=== PATIENT | female | born 1935 | race African-American/Black ===

== ENCOUNTER 2019-09-24 10:04 | Outpatient (RCR) | payer MEDICARE, MEDICAID, SELFPAY | END 2019-09-24 23:59 | disposition home or self-care (01) | LOC: ANHAUDIO 10:04 | DX: Z46.1 Encounter for fitting and adjustment of hearing aid (principal) | CPT/HCPCS: 99199 ==

== ENCOUNTER 2020-05-05 16:49 | Inpatient (IN) | payer MEDICARE, MEDICAID, SELFPAY ==
--- NOTE | ~2020-05-05 | XR_ITS ---
EXAMINATION: XR chest 1V portable INDICATION: Pacemaker insertion TECHNIQUE: Portable AP chest at 1041 hours COMPARISON: 08/19/2019 FINDINGS: A single lead pacemaker has been inserted into the left chest wall. There is no pneumothora x. Stable cardiomegaly is noted. A small left pleural effusion is present which is decreased in size. There is a mild diffuse interstitial pattern. IMPRESSION: 1. Right-sided pacemaker insertion without pneumothorax. 2. Cardiomegaly with mild pulmonary edema. Reviewed, dictated and finalized at location A.
--- NOTE | ~2020-05-05 | CT_ITS ---
EXAMINATION: CT brain wo con, CT cervical spine wo con EXAM DATE: 05/05/2020 18:28 (accession [id number]), 05/05/2020 18:29 (accession [id number]) INDICATION: Head injury. TECHNIQUE: Spiral CT of the head was performed without contrast. Axial, coronal and sagittal images were reviewed. Spiral CT of the cervical spine was performed without contrast. Axial images were rev iewed. Coronal and sagittal reformatted images were also reviewed. The dose-length product (DLP) fo r this examination was 605.33 (accession [id number]), 479.92 (accession [id number]) mGy-cm. The exposure was tailored according to patient size, and iterative reconstruction (ASIR) was used as additional dose reduction technique. Comparison is made to prior examination from 08/21/2019. FINDINGS: HEAD CT: Old small right parietal lobe cortical infarction. Punctate old left thalamic lacunar infarc tion. There is no acute intraparenchymal hemorrhage. No evidence of intraparenchymal brain mass lesi on. No evidence of acute infarction. There is mild periventricular and subcortical hypodensity, nons pecific but probably related to small vessel ischemic disease. There is moderate prominence of the sulci and ventricles related to cerebral atrophy. There is intracranial carotid arteriosclerosis. There is no mass effect or midline shift. There is no obstructive hydrocephalus suspected. There ar e no extra-axial collections. There are no acute calvarial fractures. The orbits are unremarkable. There is large right frontal scalp hematoma. The visualized sinuses and mastoid air cells are well a erated. CERVICAL CT: There is no evidence of acute cervical fracture. The odontoid process is intact. Pre- dens space is normal. Prevertebral soft tissue is normal. There are no soft tissue abnormalities id entified. There is no disc space widening or traumatic vertebral body subluxation suspected. Moderat e to severe disc disease C4-5 and 5-6, less at the other cervical levels. Overall moderate cervical a rthropathy. Goiter. Left pleural effusion. A detailed level by level evaluation of spondylosis can b e added as addendum if requested. IMPRESSION: 1. No acute intracranial findings or cervical fracture. 2. Large right frontal scalp hematoma. 3. 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 4. Left pleural effusion. 5. Cervical spondylosis. 6. Goiter. Reviewed, dictated and finalized at location A. IMPRESSION: 1. No acute intracranial findings or cervical fracture. 2. Large right frontal scalp hematoma. 3. 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 4. Left pleural effusion. 5. Cervical spondylosis. 6. Goiter.
--- NOTE | ~2020-05-05 | CT_ITS ---
EXAMINATION: CTA chest PE protocol EXAM DATE: 05/05/2020 18:29 INDICATION: Syncope. TECHNIQUE: Spiral CTA of the chest (pulmonary arteries) was performed with 100 cc Omnipaque 350 intr avenous contrast injection. Images were acquired during the pulmonary arterial phase. Coronal maxi mum intensity projection 3D-reconstructions were created by the technologist on dedicated workstation . Axial, coronal and sagittal reformatted images were reviewed. The dose-length product (DLP) for t his examination was 964.67 mGy-cm. The exposure was tailored according to patient size (auto mA exp osure control), and iterative reconstruction (ASIR) was used as additional dose reduction technique. Comparison is made to prior examination from 08/21/2019. FINDINGS: There are no pulmonary emboli in the 1st through 3rd order (central and interlobar) pulmon andria arteries. Some loss of attenuation in the segmental pulmonary arteries due to respiratory motion , but no intraluminal filling defects suspected. No thoracic aortic dissection. There is generaliz ed body wall edema. Small bilateral pleural effusions. Cardiomegaly. Left-sided lung volume loss with left basilar atelectasis. There are no pleural or pericardial effusions. Tracheobronchial tree is patent. There is no mediastinal, hilar or axillary lymphadenopathy. There is no pneumothorax. Contrast refluxing through the atrium to the IVC may indicate some component of right heart failure. There is mild coronary arterial calcification, arterial sclerosis. Upper abdomen is unremarkable. There is thoracic spondylosis without osteoblastic or osteolytic lesions identified. IMPRESSION: 1. Cardiomegaly, small pleural effusions, body wall edema. 2. Limited segmental evaluation but no pulmonary emboli suspected. Reviewed, dictated and finalized at location A.
--- NOTE | ~2020-05-05 | XR_ITS ---
EXAMINATION: XR chest 2V DATE: 05/15/2020 10:35 INDICATION: Pacer placement. TECHNIQUE: Frontal and lateral views of the chest were obtained. COMPARISON: Chest single view 05/14/2020, chest CT 05/05/2020 FINDINGS: The patient is rotated to her left on the frontal view. There is a small left pleural effus ion. There is mild atelectasis at left lung base. There are mild perihilar airspace opacities, consis tent with pulmonary edema. No pneumothorax. Cardiomegaly is noted. There is a right chest pacer with single lead in right ventricle. There are surgical clips in the abdomen. IMPRESSION: 1. Mild pulmonary edema with small left pleural effusion. 2. Cardiomegaly. Reviewed, dictated and finalized at location A.
[2020-05-05 16:49] VITALS: BP 129/91; PULSE 136; RESP 36; TEMP 36.6; O2SAT 100
--- NOTE | 2020-05-05 16:57 | ECG_ITS ---
Measurements Intervals [place] Rate: 106 P: WI: 0 QRS: -21 QRSD: 101 T: 137 QT: 314 QTc: 417 Interpretive Statements ATRIAL FIBRILLATION WITH RAPID VENTRICULAR RESPONSE LOW QRS VOLTAGE IN DIFFUSE LEADS INCOMPLETE RIGHT BUNDLE BRANCH BLOCK BORDERLINE ST-T WAVE ABNORMALITY- DIFFUSE LEADS ABNORMAL ECG Electronically Signed On 05-06-2020 7:19:25 CDT by Jude Mcintosh D.O.
--- NOTE | 2020-05-05 17:00 | ED.FALL ---
HPI - Fall General Chief Complaint: Fall Stated Complaint: FALL/HI/ON COUMADIN Time Seen by Provider: 05/05/20 17:00 Source: patient, family and EMS Mode of arrival: EMS Limitations: dementia History of Present Illness HPI Narrative: Patient is an 84-year-old female with a history of dementia, atrial fibrillation, anticoagulated on warfarin who presents for evaluation of syncopal event. Her family member, states that the patient was trying to go to the restroom, family member place the patient on the toilet and the patient began to lose her balance, stating she was going to pass out. Patient then fell to the right and hit her head on the floor. Patient did not have any loss of consciousness. Patient currently is acting at baseline per family member. Patient has history of dementia is quite difficult to obtain history from. Per EMS, patient had very loud bowel movement in transit. Per family member, patient was recently started on new antipsychotic to help with her hallucinations from her dementia. Otherwise no new medication changes. No complaints or behavior changes yesterday. Related Data Home Medications Medication Instructions Recorded Confirmed digoxin 125 mcg PO DAILY 08/19/19 10/08/19 warfarin 2 mg PO DAILY 08/19/19 10/08/19 donepezil 10 mg PO HS 05/05/20 glimepiride 1 mg 05/05/20 metoprolol tartrate 50 mg PO Q12HR 05/05/20 tramadol mg 05/05/20 Allergies Allergy/AdvReac Type Severity Reaction Status Date / Time No Known Allergies Allergy Verified 05/05/20 17:06 Review of Systems Review of Systems: Narrative: Unable to obtain secondary to dementia [facility] Past Medical History Medical History A-fib Anemia of chronic disease Arthritis Cataracts, bilateral CHF (congestive heart failure) Diastolic Diabetes type 2, controlled With peripheral neuropathy. On oral medication. HTN (hypertension) Peripheral neuropathy Seizures TIA (transient ischemic attack) Surgical History Surgical History History of gastric bypass History of knee replacement rt knee Status post cholecystectomy Family History Family History Mother Diabetes mellitus Father Acute myocardial infarction Sibling Kidney disease Son Murder Son Pancreatic cancer Daughter Acute myocardial infarction Son Cirrhosis of liver Other Unknown family medical history Social History Social History (Updated 08/19/19 @ 15:52 by Isamar Rivera NP) Social History: The patient did live in [place] at 1 time. Then she lived in [facility]. And now she lives with her daughter. Her still lives in a fpc in [place] since he had a stroke. Her daughter is Nohelia Stanley who she does needs to be her durable power district attorney. The patient does need herself to be a full code. The patient is a Jehovah Witness and does not take blood transfusions. She denies any alcohol tobacco or drug use. Smoking status: Never smoker Alcohol intake: never Substance use: never Gender identity (if verbalized by the patient): Female Spiritual care concerns: Yes (Jehovah Witness) Agree to blood products: No Exam Narrative: Exam Narrative: Nursing note and vitals reviewed. CONSTITUTIONAL: The patient appears well-developed and well-nourished. No distress. HEAD: Normocephalic, area of ecchymosis to the forehead EYES: PERRL, EOMI palsy of the left eye, deviates to the left, at baseline per family, normal conjunctiva, anicteric EARS: External ears clear bilaterally, no hemotympanum MOUTH: OP clear, no erythema, exudates NECK: midline trachea, supple, FROM. No cervical spinal tenderness. CARDIOVASCULAR: Normal rate, regular rhythm, normal heart sounds and intact distal pulses. No murmurs, rubs, gallops. PULMONARY: Effort normal and breath sounds normal. No respi
[2020-05-05 17:14] LABS: Basophils Percent Auto 0.5 % (0.2-1.2); Eosinophils Absolute Auto 0.1 K/mm3 (0-0.3); Eosinophils Percent Auto 1.6 % (0-4.4); Hematocrit 32.5 % (37.0-47.0); Hemoglobin 10.2 g/dL (12.0-15.0); Immature Granulocyte Absolute 0.03 K/mm3 (0.00-0.031); Immature Granulocyte Percent A 0.5 % (0-0.5); Lymphocytes Absolute Auto 0.88 K/mm3 (0.9-3.2); Lymphocytes Percent Auto 14.1 % (18.3-44.2); Mean Corpuscular HGB Conc 31.4 g/dl (32-36); Mean Corpuscular Hemoglobin 28.5 pg (26-34); Mean Corpuscular Volume 90.8 fl (80-100); Mean Platelet Volume 11.8 fl (7.4-10.4); Monocytes Absolute Auto 0.8 K/mm3 (0.1-0.6); Monocytes Percent Auto 12.4 % (2.6-8.5); Neutrophils Absolute Auto 4.4 K/mm3 (1.3-6.7); Neutrophils Percent Auto 70.9 % (45.5-73.1); Platelet Count Result 123 k/mm3 (150-375); Red Blood Count 3.58 M/mm3 (4.2-5.4); Red Cell Distribution Width 17.1 % (11.5-14.5); White Blood Count 6.2 K/mm3 (4.5-10.0)
[2020-05-05 17:29] LABS: Alanine Aminotransferase 12 U/L (4-35); Albumin Level 4.2 g/dL (3.5-5.1); Alkaline Phosphatase 101 U/L (38-126); Anion Gap 9 mmol/L (8-16); Aspartate Amino Transferase 23 U/L (14-36); Bilirubin,Total 1.8 mg/dL (0.2-1.3); Blood Urea Nitrogen 32 mg/dL (7-17); Calcium 9.3 mg/dL (8.4-10.2); Carbon Dioxide 17 mmol/L (22-30); Chloride 112 mmol/L (98-107); Estimated CRCL calculation 30 ml/min; Estimated Glomerular Filt Rate 37; Glucose 157 mg/dL (65-105); Potassium 4.7 mmol/L (3.4-5.0); Sodium 138 mmol/L (137-145)
[2020-05-05 17:40] LABS: Troponin I < 0.012 ng/mL (0.000-0.034)
[2020-05-05 17:42] LABS: INR 2.8
[2020-05-05 17:43] VITALS: BP 139/76; PULSE 79; RESP 21; O2SAT 99
[2020-05-05 17:43] LABS: Partial Thromboplastin Time 39.9 SECONDS (22.3-36.8)
[2020-05-05 17:53] LABS: Add Urine Microscopic? YES; Appearance Urine Clear (Clear); Bacteria Urine Trace /hpf; Bilirubin Urine Negative (Negative); Blood Urine Negative (Negative); Color Urine Yellow (Yellow); Glucose Urine UA Negative (Negative); Ketones Urine Negative (Negative); Leukocyte Esterase Ur Negative LEU/UL (Negative); Mucus Urine Rare /lpf; Nitrate Urine Negative (Negative); Protein Urine 2+ mg/dL (Negative); Specific Grav Ur 1.017 (1.001-1.035); Squamous Epithelial Cell Urine Few /hpf (Few); WBC Urine 0-3 /hpf
[2020-05-05 18:01] LABS: D Dimer 3.12 ug/mL (<0.48)
[2020-05-05 18:42] VITALS: BP 136/84; PULSE 76; RESP 16; O2SAT 100
--- NOTE | 2020-05-05 20:22 | PC.NURSE ---
unable to draw 3hr, asked nurse
[2020-05-05 20:55] VITALS: BP 133/66; PULSE 62; RESP 20; TEMP 36.5; O2SAT 100; BMI 33.4
--- NOTE | 2020-05-05 21:18 | ADMGEN ---
This patient, Maria Alejandra Nunez, was admitted to IMU Room 203-01. Patient/family oriented to hospital policies and general routines including ID bracelet, bed and alarms, visiting hours, pain management, procedures, bathroom and other care routines, personal items, smoking policy, room service/diet, and visiting hours. Valuables list has been completed. Information on how to activate the Rapid Response Team has been discussed. Patient/Family are encouraged to report perceived risks to care and to ask questions if they do not understand what they are told or what they should do. approx 2100 05/05/20 report from sundeep
[2020-05-05 21:30] VITALS: PULSE 54
[2020-05-05] MEDS: ACETAMINOPHEN 325 MG TABLET 650 MG PO (21:48)
[2020-05-05 21:49] LABS: Troponin I 0.014 ng/mL (0.000-0.034)
[2020-05-05 22:00] VITALS: PULSE 59
--- NOTE | 2020-05-05 23:18 | PM.IMHP ---
H&P: HPI History of Present Illness Date/Time: 05/05/20 23:18 Chief complaint: fall, head injury Narrative: source of information is past medical records. The patient is only alert and oriented x2 in can provide no additional information regarding her reason for admission. Maria Alejandra Nunez is a 84 year old female with a past medical history of dementia,diastolic heart failure, right ventricular heart failure with severe pulmonary hypertension, chronic atrial fibrillation and chronic kidney disease stage 3 who presented to the ER via EMS from home after having a fall. The patient was assisted to Toilet by her family. As soon as she sat down she began to lose her balance and felt as if she was going to pass out. The patient then fell to the right and hit her head on the floor. The patient did not lose consciousness. the patient is got some chronic confusion due to her dementia. She is only alert orient times 1-2 at the time of my evaluation. Per EMS the patient had a large bowel movement in transit to the ER. The patient was evidently started on a new antipsychotic recently due to hallucinations. In the ER the patient was noted to be in atrial fibrillation with a heart rate as high as 132. Once she arrived to the IMU the patient was having episodes of bradycardia with a heart rate as low as 32. she is on chronic anticoagulation with Coumadin. When patient arrived the ER she had an obvious hematoma to or forehead. She had reported a mild headache prior to my evaluation and had received Tylenol. She denies a headache currently. She does report that her legs chronically hurt. Her legs were cool to touch and we were unable to palpate pulses but the patient did have pulses that were Dopplered. She reports that her leg pain is in her thighs. She said that the doctors have told her in the past that it is due to arthritis. Review of Systems Review of Systems: Narrative: 12 systems Were reviewedwith pertinent positives and negatives per HPI. Except as documented in the HPI, all other systems were reviewed and are negative. however the review of systems is extremely limited due to the patient's dementia. [facility] Past Medical History Medical History (Updated 05/06/20 @ 01:56 by Cecy Saravia DO) Anemia of chronic disease Arthritis Atrial fibrillation Cataracts, bilateral CHF (congestive heart failure) Diastolic Chronic right-sided heart failure echocardiogram July 2019 demonstrated EF of 55-60%, moderately increased left ventricular wall thickness, diastolic function is abnormal, right ventricular chamber severely enlarged, right ventricular systolic function severely reduced, severe biatrial enlargement, mild mitral valve regurgitation, moderate tricuspid valve regurgitation, severe pulmonary hypertension with RVSP of 91, mild pulmonic regurgitation, small atheroma anterior and posterior aortic root, dilated inferior vena cava was greater than 50% collapse consistent with significantly elevated right atrial pressures Cirrhosis of liver with ascites CKD (chronic kidney disease) stage 3, GFR 30-59 ml/min CVA (cerebral vascular accident) 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 On oral medication. Essential hypertension Multinodular goiter normal TSH 07/2019 Peripheral neuropathy Seizures Severe pulmonary arterial systolic hypertension Surgical History Surgical History (Updated 05/05/20 @ 23:44 by Cecy Saravia DO) History of gastric bypass History of total right knee replacement Status post cholecystectomy Family History Family History (Updated 05/05/20 @ 23:31 by Cecy Saravia DO) Mother Diabetes mellitus Father Acute myocardial infarction Sibling Kidney disease sister Son Murder 1 son Son Pancreatic cancer Daughter , at age 39 or 40 Acute myocardial infarction Son Deceas
[2020-05-05 23:44] LABS: Troponin I < 0.012 ng/mL (0.000-0.034)
[2020-05-06] VITALS (14 sets, daily range): BP systolic 105–128; BP diastolic 51–79; PULSE 42–112; RESP 14–20; TEMP 35.7–36.7; O2SAT 96–100
[2020-05-06 05:17] LABS: Hematocrit 30.3 % (37.0-47.0); Hemoglobin 9.3 g/dL (12.0-15.0); Mean Corpuscular HGB Conc 30.7 g/dl (32-36); Mean Corpuscular Hemoglobin 29.3 pg (26-34); Mean Corpuscular Volume 95.6 fl (80-100); Platelet Count Result 65 k/mm3 (150-375); Red Blood Count 3.17 M/mm3 (4.2-5.4); Red Cell Distribution Width 17.2 % (11.5-14.5); White Blood Count 4.2 K/mm3 (4.5-10.0)
--- NOTE | 2020-05-06 08:07 | PM.CNCAR ---
Assessment and Plan Assessment and plan (1) Atrial fibrillation: Code(s): I48.91 - Unspecified atrial fibrillation Status: Acute Assessment and Plan: Chronic atrila fib. She has some tachybrady issue, and the ariane component may have caused her dizziness/fall. She is having atrial fib with SVR predominanty on medications. Metoprolol on hold. She is on Digoxin. Monitor HR to see how she responds. (2) Pulmonary hypertension: Code(s): I27.20 - Pulmonary hypertension, unspecified Status: Acute Assessment and Plan: Had referred her to [facility] [place] [facility] hypertension clinic. (3) CHF (congestive heart failure): Qualifiers: Heart failure type: diastolic Heart failure chronicity: acute on chronic Qualified Code(s): I50.33 - Acute on chronic diastolic (congestive) heart failure Code(s): I50.9 - Heart failure, unspecified Status: Chronic Assessment and Plan: She has chronic diastolic heart failure. Monitor fluid status. History of Present Illness History of Present Illness Consult date/time: 05/06/20 08:07 Reason for consult: Atrial fib with SVR. Patient is a 84 yr old woman who presented to ED for fall after dizziness. She has a history of diastolic heart failure, right ventricular heart failure with severe pulmonary hypertension, hypertension, chronic atrial fibrillation, anemia, CKD stage III. Reports she was assisted to toilet yesterday and she got dizzy and fell and hit her head. She denies passing out. On telemetry her HR was 39-106 bpm. She is chronically weak and can only transfer in her home to get around. She cannot walk due to weakness in her legs and in general. Admits to OLMOS. She is alert and oriented to her name, place and president of [employer] [facility] [facility] [facility] [facility], but not year. Denies chest pain, orthopnea, palpitations, edema. Cardiovascular Procedures Echo/MUGA:: 08/20/19 Echo: EF 55-60%, mod LVH, diastolic dysfunction (E/e' 17), severe RV enlargement and hypokinesis, severe LAE and RAS, mod MAC, mild MR, mild thickening of TV, severe pulm hypertension with RVSP 91 mmHg, mild PI. Echo (EF 60%, grade 3-4 diastolic dysfunction (E/E' 23), mod RVE/hypokinesis, severe biatrial enlargement, mild MR, severe pulm hypertension (97 mmHg), mod TR/PI.) - 10/13/2017 Electrophysiology:: 08/19/19 EKG: Atrial fibrillation with RVR, PVC, IRBBB, low voltage, borderline ST-T wave in lateral leads EKG (Atrial fibrillation at 49 bpm, ST-T wave abnormality- consider anterolateral ischemia.) - 12/29/2017 EKG (Atrial fibrillation with RVR, RSR', ST-T wave abnormality- consider lateral ischemia.) - 12/16/2017 Stress Tests:: 08/21/19 CT chest: Mod left and small right pleural effusions. Reason For Visit: fall, head injury Review of Systems Constitutional: Constitutional: Reports as per HPI, Denies chills, Reports fatigue and Reports weakness Cardiovascular: Cardiovascular: Reports as per HPI, Denies chest pain, Reports pedal edema and Reports lightheadedness Respiratory: Respiratory: Reports as per HPI and Reports dyspnea Gastrointestinal: Gastrointestinal: Reports as per HPI and Denies abdominal pain Genitourinary: Genitourinary: Reports as per HPI and Denies dysuria Musculoskeletal: Musculoskeletal: Reports as per HPI Neurologic: Reports as per HPI and Denies Abnormal speech present [facility] Past Medical History Medical History (Updated 05/06/20 @ 08:12 by Jude Mcintosh DO) Anemia of chronic disease Arthritis Atrial fibrillation Cataracts, bilateral CHF (congestive heart failure) Diastolic Chronic right-sided heart failure echocardiogram July 2019 demonstrated EF of 55-60%, moderately increased left ventricular wall thickness, diastolic function is abnormal, right ventricular chamber severely enlarged, right ventricular systolic function severely reduced, severe biatrial enlargement, mild mitral valve regurgitation, moderate tricuspid valve regurgitation, severe pulmonary hyperten
[2020-05-06] MEDS: GLIMEPIRIDE 1 MG TABLET PO (10:08)
[2020-05-06] MEDS: SPIRONOLACTONE 25 MG TABLET PO (10:08)
[2020-05-06] MEDS: DIGOXIN TAB 125 MCG TABLET PO (10:08)
--- NOTE | 2020-05-06 14:11 | PM.IMPN ---
Progress Note: A&P Assessment and Plan (1) Syncope: Code(s): R55 - Syncope and collapse Status: Acute Assessment and Plan: likely secondary to symptomatic bradycardia. Continue to monitor heart rate on telemetry in IMU. Continues to be bradycardic (2) Symptomatic bradycardia: Code(s): R00.1 - Bradycardia, unspecified Status: Acute Assessment and Plan: The patient has atrial fibrillation and was actually tachycardic in the ER. 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 DR Mcintosh consulted . (3) Traumatic hematoma of forehead: Code(s): S00.83XA - Contusion of other part of head, initial encounter Status: Acute Assessment and Plan: patient has been placed on fall precautions. PT/ OT. Subjective Date/time seen: 05/06/20 14:11 Interval history: 84 year old female with a past medical history of dementia,diastolic heart failure, right ventricular heart failure with severe pulmonary hypertension, chronic atrial fibrillation and chronic kidney disease stage 3 who presented to the ER via EMS from home after having a fall. Pt is in AF with RVR watched on monitor. Pt has history of falls. Continue cardiology recommendations and PT/ OT today hopeful discharge tomorrow. Pt has no specific complaints Review of Systems Review of Systems: All systems reviewed & are unremarkable except as noted in HPI and below Exam Narrative: Exam Narrative: Temp Pulse Resp BP Pulse Ox 36.1 C L 43 L 18 105/51 L 100 05/06/20 12:00 05/06/20 12:00 05/06/20 12:00 05/06/20 12:00 05/06/20 12:00 General: Elderly lady HEENT: large hematoma on the forehead, Respiratory: clear to auscultation bilaterally, Cardiovascular: bradycardic, irregular rhythm Skin: dried flaking skin generalized, feet are cold to touch Musculoskeletal: pitting edema to lower extremities, generalized weakness Neurological: alert and oriented times 1-2, speech is clear, no facial asymmetry, moves all extremities equally, but is weak and prone to falls Psychiatric: pleasantly confused Objective Data Vital Signs Vital Signs: Vital Signs - 24 hr 05/05/20 16:49 05/05/20 17:43 05/05/20 18:42 Temperature 36.6 C Pulse Rate 136 H 79 76 Respiratory Rate 36 H 21 H 16 Blood Pressure 129/91 H 139/76 136/84 Pulse Oximetry 100 99 100 05/05/20 20:55 05/05/20 21:30 05/05/20 22:00 Temperature 36.5 C Pulse Rate 62 54 L 59 L Respiratory Rate 20 Blood Pressure 133/66 Pulse Oximetry 100 05/06/20 00:00 05/06/20 02:00 05/06/20 04:00 Temperature 35.7 C L 36.5 C Pulse Rate 59 L 52 L 51 L Respiratory Rate 14 20 Blood Pressure 118/53 L 113/51 L Pulse Oximetry 100 97 05/06/20 06:00 05/06/20 08:00 05/06/20 10:00 Temperature 36.4 C L Pulse Rate 51 L 56 L 52 L Respiratory Rate 18 Blood Pressure 119/62 Pulse Oximetry 100 05/06/20 10:08 05/06/20 12:00 Temperature 36.1 C L Pulse Rate 62 43 L Respiratory Rate 18 Blood Pressure 105/51 L Pulse Oximetry 100 Intake/Output Intake/Output: Intake & Output 05/03/20 05/04/20 05/05/20 05/06/20 23:59 23:59 23:59 23:59 Intake Total 100 Output Total 100 Balance -100 100 Meds/Results Medications: Active Medications Generic Name Dose Route Start Last Admin Trade Name [place] PRN Reason Stop Dose Admin Acetaminophen 650 mg 05/05/20 18:58 05/05/20 21:48 Tylenol Tablet PO 650 mg Q4H PRN Administration Mild Pain (1-3) or Fever Digoxin 125 mcg 05/06/20 09:00 05/06/20 10:08 Lanoxin Tab PO 125 mcg DAILY MOON Administration Donepezil HCl 10 mg 05/06/20 21:00 Aricept PO HS MOON Glimepiride 1 mg 05/06/20 08:00 05/06/20 10:08 Amaryl PO 1 mg DAILY@0800 MOON Administration Ondansetron HCl 4 mg 05/05/20 18:58 Zofr
[2020-05-06 14:42] LABS: Digoxin 1.5 ng/mL (0.8-2.0)
[2020-05-06] MEDS: WARFARIN (*PBKC) 2 MG TABLET PO (16:40)
[2020-05-06] MEDS: DONEPEZIL HCL 10 MG TABLET PO (20:22)
[2020-05-06] MEDS: traMADol HCL 50 MG TABLET PO (20:32)
[2020-05-07] VITALS (17 sets, daily range): BP systolic 112–127; BP diastolic 55–75; PULSE 105–119; RESP 18–22; TEMP 36.1–36.6; O2SAT 96–100
[2020-05-07 06:32] LABS: Hematocrit 30.2 % (37.0-47.0); Hemoglobin 9.4 g/dL (12.0-15.0); Immature Platelet Fraction Pct 16.6 % (0.9-11.2); Mean Corpuscular HGB Conc 31.1 g/dl (32-36); Mean Corpuscular Volume 93.2 fl (80-100); Platelet Count Result 45 k/mm3 (150-375); Red Blood Count 3.24 M/mm3 (4.2-5.4); Red Cell Distribution Width 17.2 % (11.5-14.5); White Blood Count 4.2 K/mm3 (4.5-10.0)
[2020-05-07 06:38] LABS: Anion Gap 9 mmol/L (8-16); Blood Urea Nitrogen 29 mg/dL (7-17); Carbon Dioxide 17 mmol/L (22-30); Chloride 112 mmol/L (98-107); Estimated CRCL calculation 36 ml/min; Estimated Glomerular Filt Rate 47; Glucose 69 mg/dL (65-105); Sodium 138 mmol/L (137-145)
--- NOTE | 2020-05-07 07:59 | PM.PNCARD ---
Progress Note: A&P Assessment and Plan (1) Atrial fibrillation: Code(s): I48.91 - Unspecified atrial fibrillation Status: Acute Assessment and Plan: On Warfarin. Chronic atrila fib. She has some tachybrady issue, and the ariane component may have caused her dizziness/fall. She is having atrial fib with SVR predominanty on medications. Stop Digoxin. Resume low dose Metoprolol Tartate 6.25 mg BID as her HR is now predominantly 90-110 bpm. Monitor HR to see how she responds. (2) Pulmonary hypertension: Code(s): I27.20 - Pulmonary hypertension, unspecified Status: Acute Assessment and Plan: Had referred her to [facility] hypertension clinic. (3) CHF (congestive heart failure): Qualifiers: Heart failure type: diastolic Heart failure chronicity: acute on chronic Qualified Code(s): I50.33 - Acute on chronic diastolic (congestive) heart failure Code(s): I50.9 - Heart failure, unspecified Status: Chronic Assessment and Plan: She has chronic diastolic heart failure. Monitor fluid status. Subjective Date/time seen: 05/07/20 07:59 Reports no chest pain or sob. No dizziness. Exam Const: General: comfortable and no acute distress Neck: Neck: no JVD Carotids: no bruits Resp: Auscultation: clear to auscultation bilaterally, no crackles, no rales, no rhonchi and no wheezes Cardio: Rate: tachycardic Rhythm: abnormal rhythm Heart sounds: no murmurs GI: Inspection: non-distended Neuro: Speech: normal speech Extrem: Right lower extremity: edema Left lower extremity: edema Other: Mild-mod pedal edema bilaterally Objective Data Vital Signs Vital Signs: Vital Signs - 24 hr 05/06/20 08:00 05/06/20 10:00 05/06/20 10:08 Temperature 97.5 F L Pulse Rate 56 L 52 L 62 Respiratory Rate 18 Blood Pressure 119/62 Pulse Oximetry 100 05/06/20 12:00 05/06/20 16:00 05/06/20 18:00 Temperature 97 F L 97.6 F Pulse Rate 42 L 110 H 102 H Respiratory Rate 18 18 Blood Pressure 105/51 L 128/79 Pulse Oximetry 100 100 05/06/20 19:17 05/06/20 20:00 05/06/20 22:00 Temperature 98.1 F Pulse Rate 110 H 48 L 112 H Respiratory Rate 20 20 Blood Pressure 125/57 L Pulse Oximetry 100 100 05/06/20 23:11 05/07/20 00:00 05/07/20 02:00 Temperature 97.7 F Pulse Rate 111 H 110 H 110 H Respiratory Rate 18 18 Blood Pressure 114/61 Pulse Oximetry 96 96 05/07/20 03:59 05/07/20 04:00 05/07/20 05:58 Temperature 97.6 F Pulse Rate 112 H 111 H 110 H Respiratory Rate 18 18 Blood Pressure 120/74 Pulse Oximetry 96 96 Intake/Output Intake/Output: Intake & Output 05/04/20 05/05/20 05/06/20 05/07/20 23:59 23:59 23:59 23:59 Intake Total 720 100 Output Total 100 Balance -100 720 100 Meds/Results Medications: Active Medications Generic Name Dose Route Start Last Admin Trade Name Freq PRN Reason Stop Dose Admin Acetaminophen 650 mg 05/05/20 18:58 05/05/20 21:48 Tylenol Tablet PO 650 mg Q4H PRN Administration Mild Pain (1-3) or Fever Donepezil HCl 10 mg 05/06/20 21:00 05/06/20 20:22 Aricept PO 10 mg HS MOON Administration Glimepiride 1 mg 05/06/20 08:00 05/06/20 10:08 Amaryl PO 1 mg DAILY@0800 MOON Administration Metoprolol Tartrate 6.25 mg 05/07/20 09:00 Lopressor PO Q12HR MOON Ondansetron HCl 4 mg 05/05/20 18:58 Zofran Inj IV PUSH Q4H PRN Nausea Spironolactone 25 mg 05/06/20 09:00 05/06/20 10:08 Aldactone PO 25 mg QAM MOON Administration Tramadol HCl 50 mg 05/06/20 01:46 05/06/20 20:32 Ultram PO 50 mg TID PRN Administration Pain 4-6 Warfarin Sodium 2 mg 05/06/20 17:00 05/06/20 16:40 Coumadin PO 2 mg DAILY@1700 MOON Administration Radiology Results: ITS Impressions Cervical Spine CT 05/05/20 18:35 IMPRESSION: 1. No acute intracranial findings or cervical fracture. 2. Large right fro
[2020-05-07 08:16] LABS: INR 2.4
[2020-05-07] MEDS: SPIRONOLACTONE 25 MG TABLET PO (08:32)
[2020-05-07] MEDS: GLIMEPIRIDE 1 MG TABLET PO (08:32)
[2020-05-07] MEDS: METOPROLOL TARTRATE 6.25 MG TABLET PO (08:33)
[2020-05-07] MEDS: WARFARIN (*PBKC) 2 MG TABLET PO (17:09)
--- NOTE | 2020-05-07 17:14 | PM.IMPN ---
Progress Note: A&P Assessment and Plan (1) Syncope: Code(s): R55 - Syncope and collapse Status: Acute Assessment and Plan: likely secondary to symptomatic bradycardia. Continue to monitor heart rate on telemetry in IMU. Today is tachycardiac (2) Symptomatic bradycardia: Code(s): R00.1 - Bradycardia, unspecified Status: Acute Assessment and Plan: The patient has atrial fibrillation and was actually tachycardic in the ER. 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 DR Mcintosh consulted . (3) Traumatic hematoma of forehead: Code(s): S00.83XA - Contusion of other part of head, initial encounter Status: Acute Assessment and Plan: patient has been placed on fall precautions. PT/ OT. Subjective Date/time seen: 05/07/20 17:14 Interval history: 84 year old female with a past medical history of dementia,diastolic heart failure, right ventricular heart failure with severe pulmonary hypertension, chronic atrial fibrillation and chronic kidney disease stage 3 who presented to the ER via EMS from home after having a fall. Pt is in AF with RVR watched on monitor. Pt has history of falls. Continue cardiology recommendations and PT/ OT today hopeful discharge soon. Pt is tacycardic today, pt was bradycardic Pt has no specific complaints Review of Systems Review of Systems: ROS unobtainable: Yes unobtainable due to medical condition Exam Narrative: Exam Narrative: Temp Pulse Resp BP Pulse Ox 36.1 C L 43 L 18 105/51 L 100 05/06/20 12:00 05/06/20 12:00 05/06/20 12:00 05/06/20 12:00 05/06/20 12:00 General: Elderly lady HEENT: large hematoma on the forehead, Respiratory: clear to auscultation bilaterally, Cardiovascular: bradycardic, irregular rhythm Skin: dried flaking skin generalized, feet are cold to touch Musculoskeletal: pitting edema to lower extremities, generalized weakness Neurological: alert and oriented times 1-2, speech is clear, no facial asymmetry, moves all extremities equally, but is weak and prone to falls Psychiatric: pleasantly confused Objective Data Vital Signs Vital Signs: Vital Signs - 24 hr 05/06/20 18:00 05/06/20 19:17 05/06/20 20:00 Temperature 36.7 C Pulse Rate 102 H 110 H 48 L Respiratory Rate 20 20 Blood Pressure 125/57 L Pulse Oximetry 100 100 05/06/20 22:00 05/06/20 23:11 05/07/20 00:00 Temperature 36.5 C Pulse Rate 112 H 111 H 110 H Respiratory Rate 18 18 Blood Pressure 114/61 Pulse Oximetry 96 96 05/07/20 02:00 05/07/20 03:59 05/07/20 04:00 Temperature 36.4 C Pulse Rate 110 H 112 H 111 H Respiratory Rate 18 18 Blood Pressure 120/74 Pulse Oximetry 96 96 05/07/20 05:58 05/07/20 08:00 05/07/20 08:33 Temperature 36.5 C Pulse Rate 110 H 117 H 117 H Respiratory Rate 18 Blood Pressure 119/55 L Pulse Oximetry 100 05/07/20 08:37 05/07/20 09:56 05/07/20 12:00 Temperature 36.1 C L Pulse Rate 117 H 111 H 114 H Respiratory Rate 18 18 Blood Pressure 112/75 Pulse Oximetry 100 100 05/07/20 14:00 05/07/20 16:00 Temperature 36.6 C Pulse Rate 115 H 116 H Respiratory Rate 22 H Blood Pressure 119/72 Pulse Oximetry 100 Intake/Output Intake/Output: Intake & Output 05/04/20 05/05/20 05/06/20 05/07/20 23:59 23:59 23:59 23:59 Intake Total 720 340 Output Total 100 Balance -100 720 340 Meds/Results Medications: Active Medications Generic Name Dose Route Start Last Admin Trade Name Freq PRN Reason Stop Dose Admin Acetaminophen 650 mg 05/05/20 18:58 05/05/20 21:48 Tylenol Tablet PO 650 mg Q4H PRN Administration Mild Pain (1-3) or Fever Donepezil HCl 10 mg 05/06/20 21:00 05/06/20 20:22 Aricept PO 10 mg HS MOON Administration Glimepiride 1 mg 05/06/20 08:00 0
[2020-05-07] MEDS: traMADol HCL 50 MG TABLET PO (20:23)
[2020-05-07] MEDS: DONEPEZIL HCL 10 MG TABLET PO (20:23)
[2020-05-07] MEDS: METOPROLOL TARTRATE 12.5 MG TABLET PO (20:23)
[2020-05-08] VITALS (19 sets, daily range): BP systolic 105–141; BP diastolic 53–83; PULSE 46–115; RESP 2–22; TEMP 35.9–36.8; O2SAT 97–100
[2020-05-08 05:13] LABS: Hematocrit 28.1 % (37.0-47.0); Mean Corpuscular Hemoglobin 29.1 pg (26-34); Mean Corpuscular Volume 90.9 fl (80-100); Mean Platelet Volume 12.2 fl (7.4-10.4); Platelet Count Result 124 k/mm3 (150-375); Red Blood Count 3.09 M/mm3 (4.2-5.4); White Blood Count 4.8 K/mm3 (4.5-10.0)
[2020-05-08 05:23] LABS: Anion Gap 7 mmol/L (8-16); Blood Urea Nitrogen 26 mg/dL (7-17); Carbon Dioxide 19 mmol/L (22-30); Chloride 112 mmol/L (98-107); Estimated CRCL calculation 36 ml/min; Estimated Glomerular Filt Rate 47; Glucose 60 mg/dL (65-105); Sodium 138 mmol/L (137-145)
[2020-05-08 05:30] LABS: INR 2.4; Prothrombin Time 25.3 Seconds (11.1-14.7)
[2020-05-08 05:58] LABS: Glucose Point of Care 57 (65-105)
[2020-05-08 06:30] LABS: Glucose Point of Care 63 (65-105)
[2020-05-08 07:42] LABS: Glucose Point of Care 84 (65-105)
--- NOTE | 2020-05-08 09:41 | PM.PNCARD ---
Progress Note: A&P Assessment and Plan (1) Atrial fibrillation: Code(s): I48.91 - Unspecified atrial fibrillation Status: Acute Assessment and Plan: On Warfarin. Chronic atrila fib. She has some tachybrady issue, and the ariane component may have caused her dizziness/fall. She is having atrial fib with SVR predominanty on medications. Stop Digoxin. Increase Metoprolol Tartate 12.5 mg BID as her HR is now predominantly 90-115 bpm. Monitor HR to see how she responds. (2) Pulmonary hypertension: Code(s): I27.20 - Pulmonary hypertension, unspecified Status: Acute Assessment and Plan: Had referred her to [facility] hypertension clinic. (3) CHF (congestive heart failure): Qualifiers: Heart failure type: diastolic Heart failure chronicity: acute on chronic Qualified Code(s): I50.33 - Acute on chronic diastolic (congestive) heart failure Code(s): I50.9 - Heart failure, unspecified Status: Chronic Assessment and Plan: She has chronic diastolic heart failure. Monitor fluid status. Subjective Date/time seen: 05/08/20 09:41 No chest pain or sob or dizziness. Exam Const: General: comfortable and no acute distress Neck: Neck: no JVD Carotids: no bruits Resp: Auscultation: clear to auscultation bilaterally, no crackles, no rales, no rhonchi and no wheezes Cardio: Rate: tachycardic Rhythm: abnormal rhythm GI: Inspection: non-distended Neuro: Speech: normal speech Extrem: Right lower extremity: no edema Left lower extremity: no edema Objective Data Vital Signs Vital Signs: Vital Signs - 24 hr 05/07/20 09:56 05/07/20 12:00 05/07/20 14:00 Temperature 97 F L Pulse Rate 111 H 114 H 115 H Respiratory Rate 18 Blood Pressure 112/75 Pulse Oximetry 100 05/07/20 16:00 05/07/20 17:36 05/07/20 20:00 Temperature 97.9 F 97.9 F Pulse Rate 116 H 118 H 117 H Respiratory Rate 22 H 20 Blood Pressure 119/72 126/68 Pulse Oximetry 100 96 05/07/20 20:23 05/07/20 22:00 05/07/20 23:37 Temperature 97.8 F Pulse Rate 118 H 117 H 119 H Respiratory Rate 20 Blood Pressure 127/70 Pulse Oximetry 97 05/08/20 00:00 05/08/20 02:00 05/08/20 04:00 Temperature 98.0 F Pulse Rate 59 L 52 L 75 Respiratory Rate 20 20 Blood Pressure 131/62 Pulse Oximetry 97 97 05/08/20 05:59 05/08/20 08:20 Temperature 97.2 F L Pulse Rate 58 L 113 H Respiratory Rate 22 H Blood Pressure 115/63 Pulse Oximetry 100 Intake/Output Intake/Output: Intake & Output 05/05/20 05/06/20 05/07/20 05/08/20 23:59 23:59 23:59 23:59 Intake Total 720 390 Output Total 100 350 Balance -100 720 390 -350 Meds/Results Medications: Active Medications Generic Name Dose Route Start Last Admin Trade Name Freq PRN Reason Stop Dose Admin Acetaminophen 650 mg 05/05/20 18:58 05/05/20 21:48 Tylenol Tablet PO 650 mg Q4H PRN Administration Mild Pain (1-3) or Fever Donepezil HCl 10 mg 05/06/20 21:00 05/07/20 20:23 Aricept PO 10 mg HS MOON Administration Glimepiride 1 mg 05/06/20 08:00 05/07/20 08:32 Amaryl PO 1 mg DAILY@0800 [facility] Administration Metoprolol Tartrate 12.5 mg 05/07/20 21:00 05/07/20 20:23 Lopressor PO 12.5 mg Q12HR MOON Administration Ondansetron HCl 4 mg 05/05/20 18:58 Zofran Inj IV PUSH Q4H PRN Nausea Spironolactone 25 mg 05/06/20 09:00 05/07/20 08:32 Aldactone PO 25 mg QAM MOON Administration Tramadol HCl 50 mg 05/06/20 01:46 05/07/20 20:23 Ultram PO 50 mg TID PRN Administration Pain 4-6 Warfarin Sodium 2 mg 05/06/20 17:00 05/07/20 17:09 Coumadin PO 2 mg DAILY@1700 MOON Administration Radiology Results: ITS Impressions Cervical Spine CT 05/05/20 18:35 IMPRESSION: 1. No acute intracranial findings or cervical fracture. 2. Large right frontal scalp hematoma. 3. 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
[2020-05-08] MEDS: METOPROLOL TARTRATE 12.5 MG TABLET PO (09:59)
[2020-05-08] MEDS: SPIRONOLACTONE 25 MG TABLET PO (10:00)
--- NOTE | 2020-05-08 11:40 | P.CDI_ITS ---
CDI Query Clarification Request Dr Mcintosh You have documented CHF, diastolic acute on chronic. Also, She has chronic simons tolic heart failure. Monitor fluid status. Please clarify acuity of diastolic CHF: * Acute on chronic or * Chronic <Mireya Tinoco RN - Last Filed: 05/08/20 11:44> Provider Comments It says chronic diastolic heart failure. Not acute. <Jude Mcintosh DO - Last Filed: 05/08/20 11:47>
--- NOTE | 2020-05-08 11:40 | WPDCDIQUERY2 ---
CDI Query Clarification Request Dr Mcintosh You have documented CHF, diastolic acute on chronic. Also, She has chronic diastolic heart failure. Monitor fluid status. Please clarify acuity of diastolic CHF: Acute on chronic or Chronic <Mireya Tinoco RN - Last Filed: 05/08/20 11:44> Provider Comments It says chronic diastolic heart failure. Not acute. <Jude Mcintosh DO - Last Filed: 05/08/20 11:47>
--- NOTE | 2020-05-08 12:16 | PCPTNOTE ---
Patient refused treatment this session due to being nauseated. PT will continue to follow per plan of care.
[2020-05-08 12:41] LABS: Glucose Point of Care 63 (65-105)
--- NOTE | 2020-05-08 16:41 | PM.IMPN ---
Progress Note: A&P Assessment and Plan (1) Syncope: Code(s): R55 - Syncope and collapse Status: Acute Assessment and Plan: likely secondary to symptomatic bradycardia. Continue to monitor heart rate on telemetry in IMU. Today is tachycardiac (2) Symptomatic bradycardia: Code(s): R00.1 - Bradycardia, unspecified Status: Acute Assessment and Plan: Today is tachycardiac The patient has atrial fibrillation and was actually tachycardic in the ER. 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 DR Mcintosh consulted . (3) Traumatic hematoma of forehead: Code(s): S00.83XA - Contusion of other part of head, initial encounter Status: Acute Assessment and Plan: patient has been placed on fall precautions. PT/ OT. (4) Nausea: Code(s): R11.0 - Nausea Status: Acute Assessment and Plan: Order kub for wilner Subjective Date/time seen: 05/08/20 16:41 Interval history: 84 year old female with a past medical history of dementia,diastolic heart failure, right ventricular heart failure with severe pulmonary hypertension, chronic atrial fibrillation and chronic kidney disease stage 3 who presented to the ER via EMS from home after having a fall. Pt is in AF with RVR watched on monitor. Pt has history of falls. Continue cardiology recommendations and PT/ OT today hopeful discharge soon. Pt is tachycardic today, Pt is nauseated today. Pt has no other specific complaints Review of Systems Review of Systems: Narrative: nausea Exam Narrative: Exam Narrative: Temp Pulse Resp BP Pulse Ox 36.1 C L 43 L 18 105/51 L 100 05/06/20 12:00 05/06/20 12:00 05/06/20 12:00 05/06/20 12:00 05/06/20 12:00 General: Elderly lady HEENT: large hematoma on the forehead, Respiratory: clear to auscultation bilaterally, Cardiovascular: tachycardic Skin: dried flaking skin generalized, feet are cold to touch Musculoskeletal: pitting edema to lower extremities, generalized weakness Neurological: alert and oriented times 1-2, speech is clear, no facial asymmetry, moves all extremities equally, but is weak and prone to falls Psychiatric: pleasantly confused Objective Data Vital Signs Vital Signs: Vital Signs - 24 hr 05/07/20 17:36 05/07/20 20:00 05/07/20 20:23 Temperature 36.6 C Pulse Rate 118 H 117 H 118 H Respiratory Rate 20 Blood Pressure 126/68 Pulse Oximetry 96 05/07/20 22:00 05/07/20 23:37 05/08/20 00:00 Temperature 36.6 C Pulse Rate 117 H 119 H 59 L Respiratory Rate 20 20 Blood Pressure 127/70 Pulse Oximetry 97 97 05/08/20 02:00 05/08/20 04:00 05/08/20 05:59 Temperature 36.7 C Pulse Rate 52 L 75 58 L Respiratory Rate 20 Blood Pressure 131/62 Pulse Oximetry 97 05/08/20 08:20 05/08/20 08:45 05/08/20 09:59 Temperature 36.2 C L Pulse Rate 113 H 113 H 115 H Respiratory Rate 22 H Blood Pressure 115/63 Pulse Oximetry 100 05/08/20 10:00 05/08/20 12:00 05/08/20 13:02 Temperature 36.8 C Pulse Rate 110 H 112 H 114 H Respiratory Rate 22 H Blood Pressure 140/83 Pulse Oximetry 97 05/08/20 14:00 Temperature Pulse Rate 114 H Respiratory Rate Blood Pressure Pulse Oximetry Intake/Output Intake/Output: Intake & Output 05/05/20 05/06/20 05/07/20 05/08/20 23:59 23:59 23:59 23:59 Intake Total 720 390 120 Output Total 100 350 Balance -100 720 390 -230 Meds/Results Medications: Active Medications Generic Name Dose Route Start Last Admin Trade Name Freq PRN Reason Stop Dose Admin Acetaminophen 650 mg 05/05/20 18:58 05/05/20 21:48 Tylenol Tablet PO 650 mg Q4H PRN Administration Mild Pain (1-3) or Fever Donepezil HCl 10 mg 05/06/20 21:00 05/07/20 20:23 Aricept PO 10 mg HS MOON Administration Gli
[2020-05-08 17:14] LABS: Glucose Point of Care 115 (65-105)
[2020-05-08] MEDS: WARFARIN (*PBKC) 2 MG TABLET PO (17:26)
--- NOTE | 2020-05-08 19:51 | PC.NURSE ---
1943- at @ 1940 pt HR 110's then pt had @ 3/32 sec pause - HR 40's-50's; pt asymptomatic- Dr. Mcintosh called and notified - new orders received
[2020-05-08] MEDS: DONEPEZIL HCL 10 MG TABLET PO (20:57)
[2020-05-09] VITALS (16 sets, daily range): BP systolic 105–142; BP diastolic 46–61; PULSE 42–68; RESP 16–20; TEMP 35.8–36.3; O2SAT 96–100
[2020-05-09 04:41] LABS: Hematocrit 29.4 % (37.0-47.0); Hemoglobin 9.1 g/dL (12.0-15.0); Mean Corpuscular Hemoglobin 28.7 pg (26-34); Mean Corpuscular Volume 92.7 fl (80-100); Mean Platelet Volume 11.8 fl (7.4-10.4); Platelet Count Result 113 k/mm3 (150-375); Red Blood Count 3.17 M/mm3 (4.2-5.4); Red Cell Distribution Width 16.8 % (11.5-14.5); White Blood Count 4.3 K/mm3 (4.5-10.0)
[2020-05-09 04:48] LABS: INR 2.3; Prothrombin Time 24.8 Seconds (11.1-14.7)
[2020-05-09 04:54] LABS: Anion Gap 7 mmol/L (8-16); Blood Urea Nitrogen 25 mg/dL (7-17); Carbon Dioxide 20 mmol/L (22-30); Chloride 109 mmol/L (98-107); Estimated CRCL calculation 34 ml/min; Estimated Glomerular Filt Rate 44; Glucose 94 mg/dL (65-105); Potassium 5.1 mmol/L (3.4-5.0); Sodium 136 mmol/L (137-145)
--- NOTE | 2020-05-09 07:46 | PM.PNCARD ---
Progress Note: A&P Assessment and Plan (1) Atrial fibrillation: Code(s): I48.91 - Unspecified atrial fibrillation Status: Acute Assessment and Plan: On Warfarin. She has PAF/atrial tachycardia that changes to Junctional rhythm in 30-50 bpm range with a 3 second pause upon change in rhythm. She has tachybrady issue, and the ariane component may have caused her dizziness/fall. Stopped Digoxin. On Metoprolol 6.25 mg BID. She needs a pacemaker as antiarrhythmics would likely keep her in Juntional rhythm. She does walk around at home with a walker. Notified HCG of need for pacemaker. She is on Warfarin so we'll have to hold it and perhaps by Tuesday as today is Tuesday she can have her device placement. (2) Pulmonary hypertension: Code(s): I27.20 - Pulmonary hypertension, unspecified Status: Acute Assessment and Plan: Had referred her to [facility] pul hypertension clinic. (3) CHF (congestive heart failure): Qualifiers: Heart failure chronicity: acute on chronic Heart failure type: diastolic Qualified Code(s): I50.33 - Acute on chronic diastolic (congestive) heart failure Code(s): I50.9 - Heart failure, unspecified Status: Chronic Assessment and Plan: She has chronic diastolic heart failure. Monitor fluid status. Subjective Date/time seen: 05/09/20 07:46 Denies chest pain or sob. Telemetry shows at 7:30 pm last evening she went from atrial tachycardia at 120's bpm, 3.3 second pause, then junctional rhythm at 38 bpm. Exam Const: General: comfortable and no acute distress Neck: Neck: no JVD Carotids: no bruits Cardio: Rate: bradycardic Rhythm: abnormal rhythm GI: Inspection: non-distended Neuro: Speech: normal speech Extrem: Right lower extremity: no edema Left lower extremity: no edema Objective Data Vital Signs Vital Signs: Vital Signs - 24 hr 05/08/20 08:20 05/08/20 08:45 05/08/20 09:59 Temperature 97.2 F L Pulse Rate 113 H 113 H 115 H Respiratory Rate 22 H Blood Pressure 115/63 Pulse Oximetry 100 05/08/20 10:00 05/08/20 12:00 05/08/20 13:02 Temperature 98.2 F Pulse Rate 110 H 112 H 114 H Respiratory Rate 22 H Blood Pressure 140/83 Pulse Oximetry 97 05/08/20 14:00 05/08/20 16:30 05/08/20 17:18 Temperature 96.7 F L Pulse Rate 114 H 112 H 112 H Respiratory Rate 21 H Blood Pressure 141/82 H Pulse Oximetry 100 05/08/20 18:00 05/08/20 19:37 05/08/20 20:00 Temperature 98.3 F Pulse Rate 115 H 49 L 46 L Respiratory Rate 16 18 Blood Pressure 105/55 L Pulse Oximetry 100 99 05/08/20 20:58 05/08/20 22:00 05/08/20 23:31 Temperature 97.7 F Pulse Rate 48 L 48 L 50 L Respiratory Rate 2 L Blood Pressure 107/53 L Pulse Oximetry 100 05/09/20 00:00 05/09/20 02:00 05/09/20 04:00 Temperature 97 F L Pulse Rate 42 L 42 L 55 L Respiratory Rate 18 18 Blood Pressure 116/46 L Pulse Oximetry 98 100 05/09/20 06:00 Temperature Pulse Rate 56 L Respiratory Rate Blood Pressure Pulse Oximetry Intake/Output Intake/Output: Intake & Output 05/06/20 05/07/20 05/08/20 05/09/20 23:59 23:59 23:59 23:59 Intake Total 720 390 360 250 Output Total 550 Balance 720 390 -190 250 Meds/Results Medications: Active Medications Generic Name Dose Route Start Last Admin Trade Name Freq PRN Reason Stop Dose Admin Acetaminophen 650 mg 05/05/20 18:58 05/05/20 21:48 Tylenol Tablet PO 650 mg Q4H PRN Administration Mild Pain (1-3) or Fever Donepezil HCl 10 mg 05/06/20 21:00 05/08/20 20:57 Aricept PO 10 mg HS MOON Administration Furosemide 20 mg 05/09/20 09:00 Lasix Tablet PO DAILY MOON Glimepiride 1 mg 05/06/20 08:00 05/08/20 10:05 Amaryl PO Not Given DAILY@0800 MOON Metoprolol Tartrate 6.25 mg 05/08/20 21:00 05/08/20 20:58 Lopressor PO Not Given Q12HR MOON Ondansetron HCl 4 mg 05/05/20 18:58
[2020-05-09 09:05] LABS: Glucose Point of Care 79 (65-105)
[2020-05-09] MEDS: METOPROLOL TARTRATE 6.25 MG TABLET PO ×2 (09:45→21:11)
[2020-05-09] MEDS: FUROSEMIDE 20 MG TABLET PO (09:45)
[2020-05-09] MEDS: LACTULOSE 20 GM/30 ML UDC PO ×2 (09:45→16:30)
--- NOTE | 2020-05-09 12:38 | PM.IMPN ---
Progress Note: A&P Assessment and Plan (1) Syncope: Code(s): R55 - Syncope and collapse Status: Acute Assessment and Plan: likely secondary to symptomatic bradycardia. Continue to monitor heart rate on telemetry in IMU. Today is tachycardiac (2) Symptomatic bradycardia: Code(s): R00.1 - Bradycardia, unspecified Status: Acute Assessment and Plan: Today is tachycardiac The patient has atrial fibrillation and was actually tachycardic in the ER. 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 Pt may benefit from pacemaker DR Mcintosh consulted . (3) Traumatic hematoma of forehead: Code(s): S00.83XA - Contusion of other part of head, initial encounter Status: Acute Assessment and Plan: patient has been placed on fall precautions. PT/ OT. (4) Nausea: Code(s): R11.0 - Nausea Status: Resolved Assessment and Plan: KUB not ordered Subjective Date/time seen: 05/09/20 12:38 Interval history: 84 year old female with a past medical history of dementia,diastolic heart failure, right ventricular heart failure with severe pulmonary hypertension, chronic atrial fibrillation and chronic kidney disease stage 3 who presented to the ER via EMS from home after having a fall. Pt is in AF with RVR watched on monitor. Pt has history of falls. Continue cardiology recommendations and PT/ OT today. Pt may need pacemaker. Review of Systems Review of Systems: All systems reviewed & are unremarkable except as noted in HPI and below ROS unobtainable: Yes other (frequent falls ) Cardiovascular: Cardiovascular: Denies chest pain, Denies dyspnea and Reports slow heart rate Comments: With high heart rates Exam Narrative: Exam Narrative: Temp Pulse Resp BP Pulse Ox 36.1 C L 43 L 18 105/51 L 100 05/06/20 12:00 05/06/20 12:00 05/06/20 12:00 05/06/20 12:05/06/20 12:00 General: Elderly lady HEENT: large hematoma on the forehead, Respiratory: clear to auscultation bilaterally, Cardiovascular: tachycardic Skin: dried flaking skin generalized, feet are cold to touch Musculoskeletal: pitting edema to lower extremities, generalized weakness Neurological: alert and oriented times 1-2, speech is clear, no facial asymmetry, moves all extremities equally, but is weak and prone to falls Psychiatric: pleasantly confused Objective Data Vital Signs Vital Signs: Vital Signs - 24 hr 05/08/20 13:02 05/08/20 14:00 05/08/20 16:30 Temperature 36.8 C Pulse Rate 114 H 114 H 112 H Respiratory Rate 22 H Blood Pressure 140/83 Pulse Oximetry 97 05/08/20 17:18 05/08/20 18:00 05/08/20 19:37 Temperature 35.9 C L 36.8 C Pulse Rate 112 H 115 H 49 L Respiratory Rate 21 H 16 Blood Pressure 141/82 H 105/55 L Pulse Oximetry 100 100 05/08/20 20:00 05/08/20 20:58 05/08/20 22:00 Temperature Pulse Rate 46 L 48 L 48 L Respiratory Rate 18 Blood Pressure Pulse Oximetry 99 05/08/20 23:31 05/09/20 00:00 05/09/20 02:00 Temperature 36.5 C Pulse Rate 50 L 42 L 42 L Respiratory Rate 2 L 18 Blood Pressure 107/53 L Pulse Oximetry 100 98 05/09/20 04:00 05/09/20 06:00 05/09/20 08:00 Temperature 36.1 C L Pulse Rate 55 L 56 L 59 L Respiratory Rate 18 Blood Pressure 116/46 L Pulse Oximetry 100 05/09/20 08:19 05/09/20 09:45 05/09/20 10:00 Temperature 36.3 C L Pulse Rate 53 L 60 47 L Respiratory Rate 20 Blood Pressure 105/50 L Pulse Oximetry 100 Intake/Output Intake/Output: Intake & Output 05/06/20 05/07/20 05/08/20 05/09/20 23:59 23:59 23:59 23:59 Intake Total 720 390 360 250 Output Total 550 175 Balance 720 390 -190 75 Meds/Results Medications: Active Medications Generic Name Dose Route Start Last Admin Trade Name Freq PRN Reason Stop
[2020-05-09 12:50] LABS: Glucose Point of Care 158 (65-105)
[2020-05-09 17:57] LABS: Glucose Point of Care 191 (65-105)
[2020-05-09] MEDS: DONEPEZIL HCL 10 MG TABLET PO (21:11)
[2020-05-09] MEDS: ACETAMINOPHEN 325 MG TABLET 650 MG PO (21:11)
[2020-05-09 22:36] LABS: Glucose Point of Care 171 (65-105)
[2020-05-10] VITALS (15 sets, daily range): BP systolic 111–125; BP diastolic 41–61; PULSE 54–68; RESP 16–18; TEMP 35.8–37; O2SAT 100
[2020-05-10 04:51] LABS: INR 2.2; Prothrombin Time 23.9 Seconds (11.1-14.7)
[2020-05-10 05:36] LABS: Anion Gap 5 mmol/L (8-16); Blood Urea Nitrogen 26 mg/dL (7-17); Calcium 9.1 mg/dL (8.4-10.2); Carbon Dioxide 20 mmol/L (22-30); Chloride 111 mmol/L (98-107); Estimated CRCL calculation 36 ml/min; Estimated Glomerular Filt Rate 47; Glucose 109 mg/dL (65-105); Potassium 4.9 mmol/L (3.4-5.0); Sodium 136 mmol/L (137-145)
[2020-05-10] MEDS: METOPROLOL TARTRATE 6.25 MG TABLET PO ×2 (08:27→20:07)
[2020-05-10] MEDS: FUROSEMIDE 20 MG TABLET PO ×2 (08:27→16:38)
[2020-05-10] MEDS: LACTULOSE 20 GM/30 ML UDC PO ×2 (08:27→16:38)
[2020-05-10 08:45] LABS: Glucose Point of Care 95 (65-105)
--- NOTE | 2020-05-10 10:05 | PM.PNCARD ---
Progress Note: A&P Additional Plan will anticipate proceeding with VVI pacemaker Tuesday if INR is 1.5 or lower. Yuri Reese MD [facility] Subjective Date/time seen: date of service:05/10/20 10:05 Interval history: This is an 84-year-old woman with atrial fib with rate control and anticoagulation. The charts indicate she is in AFib chronically. Because of the picture of tachy-ariane including some pauses of greater than 3 seconds we have been asked to implant a pacemaker device in her. The patient is followed by Dr. Mcintosh. Her rate controlling medications including digoxin and metoprolol have been placed on hold. Despite this she was still having some problematic bradycardic pauses. The patient of is chronically on Coumadin and this has been placed on hold in anticipation of pacemaker implantation. INR this morning is still 2.2. Will tentatively plan on pacemaker implantation on Tuesday. INR must be less than 1.5 to safely proceed Exam Const: General: comfortable and no acute distress Neck: Neck: no JVD Thyroid: thyroid normal Resp: Effort & Inspection: normal respiratory effort Auscultation: clear to auscultation bilaterally Cardio: Rhythm: abnormal rhythm irregularly irregular GI: Auscultation: normal bowel sounds Skin: General skin exam: normal color Neuro: Cognition (Neuro): normal cognition Objective Data Vital Signs Vital Signs: Vital Signs - 24 hr 05/09/20 12:00 05/09/20 13:16 05/09/20 14:00 Temperature 35.8 C L Pulse Rate 47 L 58 L 68 Respiratory Rate 16 Blood Pressure 106/53 L Pulse Oximetry 100 05/09/20 16:00 05/09/20 18:00 05/09/20 20:00 Temperature 35.8 C L 36.1 C L Pulse Rate 53 L 63 66 Respiratory Rate 16 18 Blood Pressure 142/61 H 122/57 L Pulse Oximetry 100 100 05/09/20 21:11 05/09/20 22:00 05/10/20 00:00 Temperature 36.6 C Pulse Rate 59 L 50 L 59 L Respiratory Rate 18 Blood Pressure 118/61 Pulse Oximetry 100 05/10/20 02:00 05/10/20 04:00 05/10/20 06:00 Temperature 36.7 C Pulse Rate 61 59 L 65 Respiratory Rate Blood Pressure 117/50 L Pulse Oximetry 100 05/10/20 08:00 05/10/20 08:27 05/10/20 10:04 Temperature 35.8 C L Pulse Rate 67 65 57 L Respiratory Rate 18 Blood Pressure 114/48 L Pulse Oximetry 100 Intake/Output Intake/Output: Intake & Output 05/07/20 05/08/20 05/09/20 05/10/20 23:59 23:59 23:59 23:59 Intake Total 390 360 580 150 Output Total 550 175 200 Balance 390 -190 405 -50 Meds/Results Medications: Active Medications Generic Name Dose Route Start Last Admin Trade Name Freq PRN Reason Stop Dose Admin Acetaminophen 650 mg 05/05/20 18:58 05/09/20 21:11 Tylenol Tablet PO 650 mg Q4H PRN Administration Mild Pain (1-3) or Fever Donepezil HCl 10 mg 05/06/20 21:00 05/09/20 21:11 Aricept PO 10 mg HS MOON Administration Furosemide 20 mg 05/09/20 09:00 05/10/20 08:27 Lasix Tablet PO 20 mg DAILY MOON Administration Glimepiride 1 mg 05/06/20 08:00 05/09/20 09:18 Amaryl PO Not Given DAILY@0800 MOON Lactulose 20 gm 05/09/20 09:00 05/10/20 08:27 Lactulose PO 20 gm BID MOON Administration Metoprolol Tartrate 6.25 mg 05/08/20 21:00 05/10/20 08:27 Lopressor PO 6.25 mg Q12HR MOON Administration Ondansetron HCl 4 mg 05/05/20 18:58 Zofran Inj IV PUSH Q4H PRN Nausea Polyethylene Glycol 17 gm 05/09/20 09:14 Miralax PO QAM PRN Constipation Tramadol HCl 50 mg 05/06/20 01:46 05/07/20 20:23 Ultram PO 50 mg TID PRN Administration Pain 4-6 Warfarin Sodium 2 mg 05/06/20 17:00 05/08/20 17:26 Coumadin PO 2 mg DAILY@1700 MOON Administration Radiology Results: ITS Impressions Cervical Spine CT 05/05/20 18:35 IMPRESSION: 1. No acute intracranial findings or cervical fracture. 2. Large right frontal scalp hematoma. 3. 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 4.
--- NOTE | 2020-05-10 12:48 | PM.PNCARD ---
Progress Note: A&P Assessment and Plan (1) Atrial fibrillation: Code(s): I48.91 - Unspecified atrial fibrillation Status: Acute Assessment and Plan: On Warfarin. She has PAF/atrial tachycardia that changes to Junctional rhythm in 30-50 bpm range with a 3 second pause upon change in rhythm. She has tachybrady issue, and the ariane component may have caused her dizziness/fall. Stopped Digoxin. On Metoprolol 6.25 mg BID. She needs a pacemaker as antiarrhythmics would likely keep her in Juntional rhythm. She does walk around at home with a walker. Notified HCG of need for pacemaker. She is on Warfarin so we'll have to hold it and perhaps by Tuesday as today is Tuesday she can have her device placement. (2) Pulmonary hypertension: Code(s): I27.20 - Pulmonary hypertension, unspecified Status: Acute Assessment and Plan: Had referred her to [facility] pul hypertension clinic. (3) CHF (congestive heart failure): Qualifiers: Heart failure type: diastolic Heart failure chronicity: acute on chronic Qualified Code(s): I50.33 - Acute on chronic diastolic (congestive) heart failure Code(s): I50.9 - Heart failure, unspecified Status: Chronic Assessment and Plan: She has chronic diastolic heart failure. Due to hyperkalemia, Spironolactone changed to Furosemide. Will increase Furosemide 20 mg BID given development of edema of legs. Subjective Date/time seen: 05/10/20 12:48 Denies chest pain or sob. Exam Const: General: comfortable and no acute distress Neck: Neck: no JVD Carotids: no bruits Cardio: Rate: bradycardic Rhythm: abnormal rhythm GI: Inspection: non-distended Neuro: Speech: normal speech Extrem: Right lower extremity: edema Left lower extremity: edema Other: Mild edema of both legs Objective Data Vital Signs Vital Signs: Vital Signs - 24 hr 05/09/20 13:16 05/09/20 14:00 05/09/20 16:00 Temperature 96.5 F L 96.5 F L Pulse Rate 58 L 68 53 L Respiratory Rate 16 16 Blood Pressure 106/53 L 142/61 H Pulse Oximetry 100 100 05/09/20 18:00 05/09/20 20:00 05/09/20 21:11 Temperature 97 F L Pulse Rate 63 66 59 L Respiratory Rate 18 Blood Pressure 122/57 L Pulse Oximetry 100 05/09/20 22:00 05/10/20 00:00 05/10/20 02:00 Temperature 98 F Pulse Rate 50 L 59 L 61 Respiratory Rate 18 Blood Pressure 118/61 Pulse Oximetry 100 05/10/20 04:00 05/10/20 06:00 05/10/20 08:00 Temperature 98.1 F 96.5 F L Pulse Rate 59 L 65 67 Respiratory Rate 18 Blood Pressure 117/50 L 114/48 L Pulse Oximetry 100 100 05/10/20 08:27 05/10/20 10:04 Temperature Pulse Rate 65 57 L Respiratory Rate Blood Pressure Pulse Oximetry Intake/Output Intake/Output: Intake & Output 05/07/20 05/08/20 05/09/20 05/10/20 23:59 23:59 23:59 23:59 Intake Total 390 360 580 150 Output Total 550 175 200 Balance 390 -190 405 -50 Meds/Results Medications: Active Medications Generic Name Dose Route Start Last Admin Trade Name Freq PRN Reason Stop Dose Admin Acetaminophen 650 mg 05/05/20 18:58 05/09/20 21:11 Tylenol Tablet PO 650 mg Q4H PRN Administration Mild Pain (1-3) or Fever Donepezil HCl 10 mg 05/06/20 21:00 05/09/20 21:11 Aricept PO 10 mg HS MOON Administration Furosemide 20 mg 05/09/20 09:00 05/10/20 08:27 Lasix Tablet PO 20 mg DAILY MOON Administration Glimepiride 1 mg 05/06/20 08:00 05/09/20 09:18 Amaryl PO Not Given DAILY@0800 MOON Lactulose 20 gm 05/09/20 09:00 05/10/20 08:27 Lactulose PO 20 gm BID MOON Administration Metoprolol Tartrate 6.25 mg 05/08/20 21:00 05/10/20 08:27 Lopressor PO 6.25 mg Q12HR MOON Administration Ondansetron HCl 4 mg 05/05/20 18:58 Zofran Inj IV PUSH Q4H PRN Nausea Polyethylene Glycol 17 gm 05/09/20 09:14 Miralax PO QAM PRN Constipation Tramadol HCl 50 mg 05/06/20
[2020-05-10 15:02] LABS: Glucose Point of Care 186 (65-105)
--- NOTE | 2020-05-10 15:55 | PM.IMPN ---
Progress Note: A&P Assessment and Plan (1) Syncope: Code(s): R55 - Syncope and collapse Status: Acute Assessment and Plan: likely secondary to symptomatic bradycardia. Continue to monitor heart rate on telemetry in IMU. Today is bradycardic (2) Symptomatic bradycardia: Code(s): R00.1 - Bradycardia, unspecified Status: Acute Assessment and Plan: The patient has atrial fibrillation and was actually tachycardic in the ER. 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 Pt may benefit from pacemaker DR Mcintosh consulted . (3) Traumatic hematoma of forehead: Code(s): S00.83XA - Contusion of other part of head, initial encounter Status: Acute Assessment and Plan: patient has been placed on fall precautions. PT/ OT. (4) Nausea: Code(s): R11.0 - Nausea Status: Resolved Assessment and Plan: KUB not ordered, eating small amounts (5) Anemia of chronic disease: Code(s): D63.8 - Anemia in other chronic diseases classified elsewhere Status: Chronic Assessment and Plan: hb is 9 start iron supplementation creat is 1.3 history of CKD stage 3 Subjective Date/time seen: 05/10/20 15:55 Interval history: 84 year old female with a past medical history of dementia,diastolic heart failure, right ventricular heart failure with severe pulmonary hypertension, chronic atrial fibrillation and chronic kidney disease stage 3 who presented to the ER via EMS from home after having a fall. Pt is in AF with RVR watched on monitor. Pt has history of falls. Continue cardiology recommendations and PT/ OT today. For pacemaker on tuesday. Coumadin on hold. Review of Systems Review of Systems: ROS unobtainable: Yes unobtainable due to medical condition Exam Narrative: Exam Narrative: Temp Pulse Resp BP Pulse Ox 36.1 C L 43 L 18 105/51 L 100 05/06/20 12:00 05/06/20 12:00 05/06/20 12:00 05/06/20 12:00 05/06/20 12:00 General: Elderly lady HEENT: large hematoma on the forehead, Respiratory: clear to auscultation bilaterally, Cardiovascular: bradycardic Skin: dried flaking skin generalized, feet are cold to touch Musculoskeletal: pitting edema to lower extremities, generalized weakness Neurological: alert and oriented times 1-2, speech is clear, no facial asymmetry, moves all extremities equally, but is weak and prone to falls Psychiatric: pleasantly confused Objective Data Vital Signs Vital Signs: Vital Signs - 24 hr 05/09/20 16:00 05/09/20 18:00 05/09/20 20:00 Temperature 35.8 C L 36.1 C L Pulse Rate 53 L 63 66 Respiratory Rate 16 18 Blood Pressure 142/61 H 122/57 L Pulse Oximetry 100 100 05/09/20 21:11 05/09/20 22:00 05/10/20 00:00 Temperature 36.6 C Pulse Rate 59 L 50 L 59 L Respiratory Rate 18 Blood Pressure 118/61 Pulse Oximetry 100 05/10/20 02:00 05/10/20 04:00 05/10/20 06:00 Temperature 36.7 C Pulse Rate 61 59 L 65 Respiratory Rate Blood Pressure 117/50 L Pulse Oximetry 100 05/10/20 08:00 05/10/20 08:27 05/10/20 10:04 Temperature 35.8 C L Pulse Rate 67 65 57 L Respiratory Rate 18 Blood Pressure 114/48 L Pulse Oximetry 100 05/10/20 12:00 05/10/20 14:11 Temperature 36.2 C L Pulse Rate 66 54 L Respiratory Rate 16 Blood Pressure 125/41 L Pulse Oximetry 100 Intake/Output Intake/Output: Intake & Output 05/07/20 05/08/20 05/09/20 05/10/20 23:59 23:59 23:59 23:59 Intake Total 390 360 580 390 Output Total 550 175 200 Balance 390 -190 405 190 Meds/Results Medications: Active Medications Generic Name Dose Route Start Last Admin Trade Name Freq PRN Reason Stop Dose Admin Acetaminophen 650 mg 05/05/20 18:58 05/09/20 21:11 Tylenol Tablet PO 650 mg Q4H PRN Administration Mild Ayana
[2020-05-10 17:13] LABS: Glucose Point of Care 155 (65-105)
[2020-05-10] MEDS: ONDANSETRON INJ 4 MG/2 ML VIAL IV PUSH (18:43)
[2020-05-10] MEDS: DONEPEZIL HCL 10 MG TABLET PO (20:07)
[2020-05-10] MEDS: ACETAMINOPHEN 325 MG TABLET 650 MG PO (20:08)
[2020-05-10 20:09] LABS: Glucose Point of Care 199 (65-105)
[2020-05-11] VITALS (18 sets, daily range): BP systolic 113–141; BP diastolic 52–73; PULSE 50–66; RESP 16–18; TEMP 35.7–36.9; O2SAT 97–100
[2020-05-11 04:07] LABS: Hematocrit 28.4 % (37.0-47.0); Immature Platelet Fraction Pct 4.2 % (0.9-11.2); Mean Corpuscular HGB Conc 31.7 g/dl (32-36); Mean Corpuscular Hemoglobin 29.2 pg (26-34); Mean Corpuscular Volume 92.2 fl (80-100); Platelet Count Result 113 k/mm3 (150-375); Red Blood Count 3.08 M/mm3 (4.2-5.4); Red Cell Distribution Width 16.9 % (11.5-14.5); White Blood Count 3.7 K/mm3 (4.5-10.0)
[2020-05-11 04:17] LABS: INR 2.1; Prothrombin Time 22.7 Seconds (11.1-14.7)
[2020-05-11 04:21] LABS: Anion Gap 7 mmol/L (8-16); Blood Urea Nitrogen 24 mg/dL (7-17); Calcium 9.3 mg/dL (8.4-10.2); Carbon Dioxide 21 mmol/L (22-30); Chloride 110 mmol/L (98-107); Estimated CRCL calculation 32 ml/min; Estimated Glomerular Filt Rate 40; Glucose 129 mg/dL (65-105); Sodium 138 mmol/L (137-145)
[2020-05-11 08:08] LABS: Glucose Point of Care 105 (65-105)
[2020-05-11] MEDS: METOPROLOL TARTRATE 6.25 MG TABLET PO ×2 (08:33→20:16)
[2020-05-11] MEDS: FUROSEMIDE 20 MG TABLET PO ×2 (08:34→17:24)
[2020-05-11] MEDS: FERROUS SULFATE 324 MG TABLET PO (08:34)
[2020-05-11] MEDS: LACTULOSE 20 GM/30 ML UDC PO ×2 (08:34→17:24)
--- NOTE | 2020-05-11 09:21 | PM.PNCARD ---
Progress Note: A&P Assessment and Plan (1) Atrial fibrillation: Code(s): I48.91 - Unspecified atrial fibrillation Status: Acute Assessment and Plan: On Warfarin. She has PAF/atrial tachycardia that changes to Junctional rhythm in 30-50 bpm range with a 3 second pause upon change in rhythm. She has tachybrady issue, and the ariane component may have caused her dizziness/fall. Stopped Digoxin. On Metoprolol 6.25 mg BID. She needs a pacemaker as antiarrhythmics would likely keep her in Juntional rhythm. She does walk around at home with a walker. Notified HCG of need for pacemaker. She is on Warfarin so we'll have to hold it and get her INR <1.5 before she can have her device placement. (2) Pulmonary hypertension: Code(s): I27.20 - Pulmonary hypertension, unspecified Status: Acute Assessment and Plan: Had referred her to [facility] pul hypertension clinic. (3) CHF (congestive heart failure): Qualifiers: Heart failure type: diastolic Heart failure chronicity: acute on chronic Qualified Code(s): I50.33 - Acute on chronic diastolic (congestive) heart failure Code(s): I50.9 - Heart failure, unspecified Status: Chronic Assessment and Plan: She has chronic diastolic heart failure. Due to hyperkalemia, Spironolactone changed to Furosemide. On Furosemide 20 mg BID. Subjective Date/time seen: 05/11/20 09:21 Denies chest pain or sob. Exam Const: General: comfortable and no acute distress Neck: Neck: no JVD Carotids: no bruits Cardio: Rate: bradycardic Rhythm: abnormal rhythm GI: Inspection: non-distended Neuro: Speech: normal speech Extrem: Right lower extremity: no edema Left lower extremity: no edema Other: Mild edema of both legs Objective Data Vital Signs Vital Signs: Vital Signs - 24 hr 05/10/20 10:04 05/10/20 12:00 05/10/20 14:11 Temperature 97.2 F L Pulse Rate 57 L 66 54 L Respiratory Rate 16 Blood Pressure 125/41 L Pulse Oximetry 100 05/10/20 16:00 05/10/20 18:04 05/10/20 19:37 Temperature 97.1 F L 98.6 F Pulse Rate 55 L 68 54 L Respiratory Rate 16 18 Blood Pressure 123/52 L 111/57 L Pulse Oximetry 100 100 05/10/20 20:00 05/10/20 20:07 05/10/20 21:58 Temperature Pulse Rate 64 64 59 L Respiratory Rate Blood Pressure Pulse Oximetry 05/11/20 00:00 05/11/20 02:00 05/11/20 04:00 Temperature 98.2 F 98.5 F Pulse Rate 51 L 59 L 57 L Respiratory Rate 18 18 Blood Pressure 116/58 L 117/73 Pulse Oximetry 100 99 05/11/20 05:52 05/11/20 07:54 05/11/20 08:00 Temperature 96.2 F L Pulse Rate 57 L 56 L 58 L Respiratory Rate 16 Blood Pressure 130/58 L Pulse Oximetry 100 05/11/20 08:33 Temperature Pulse Rate 58 L Respiratory Rate Blood Pressure Pulse Oximetry Intake/Output Intake/Output: Intake & Output 05/08/20 05/09/20 05/10/20 05/11/20 23:59 23:59 23:59 23:59 Intake Total 360 580 610 150 Output Total 550 175 300 550 Balance -190 405 310 -400 Meds/Results Medications: Active Medications Generic Name Dose Route Start Last Admin Trade Name Freq PRN Reason Stop Dose Admin Acetaminophen 650 mg 05/05/20 18:58 05/10/20 20:08 Tylenol Tablet PO 650 mg Q4H PRN Administration Mild Pain (1-3) or Fever Donepezil HCl 10 mg 05/06/20 21:00 05/10/20 20:07 Aricept PO 10 mg HS MOON Administration Ferrous Sulfate 324 mg 05/11/20 09:00 05/11/20 08:34 Ferrous Sulfate PO 324 mg DAILY MOON Administration Furosemide 20 mg 05/10/20 17:00 05/11/20 08:34 Lasix Tablet PO 20 mg BID MOON Administration Glimepiride 1 mg 05/06/20 08:00 05/09/20 09:18 Amaryl PO Not Given DAILY@0800 MOON Lactulose 20 gm 05/09/20 09:00 05/11/20 08:34 Lactulose PO 20 gm BID MOON Administration Metoprolol Tartrate 6.25 mg 05/08/20 21:00 05/11/20 08:33 Lopressor PO 6.25 mg Q12HR MOON Administration Ondan
--- NOTE | 2020-05-11 09:23 | ECG_ITS ---
Measurements Intervals [place] Rate: 51 P: OR: 0 QRS: -83 QRSD: 117 T: 205 QT: 447 QTc: 413 Interpretive Statements JUNCTIONAL RHYTHM INCOMPLETE RIGHT BUNDLE BRANCH BLOCK LOW QRS VOLTAGE IN PRECORDIAL LEADS BORDERLINE ST-T WAVE ABNORMALITY- DIFFUSE LEADS ABNORMAL ECG Electronically Signed On 05-11-2020 15:24:45 CDT by Jude Mcintosh D.O.
[2020-05-11 13:34] LABS: Glucose Point of Care 127 (65-105)
--- NOTE | 2020-05-11 13:57 | PM.IMPN ---
Progress Note: A&P Assessment and Plan (1) Syncope: Code(s): R55 - Syncope and collapse Status: Acute Assessment and Plan: likely secondary to symptomatic bradycardia. Continue to monitor heart rate on telemetry in IMU. Today is bradycardic (2) Symptomatic bradycardia: Code(s): R00.1 - Bradycardia, unspecified Status: Acute Assessment and Plan: The patient has atrial fibrillation and was actually tachycardic in the ER. 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 Pt may benefit from pacemaker DR Mcintosh consulted . (3) Traumatic hematoma of forehead: Code(s): S00.83XA - Contusion of other part of head, initial encounter Status: Acute Assessment and Plan: patient has been placed on fall precautions. PT/ OT. (4) Nausea: Code(s): R11.0 - Nausea Status: Resolved Assessment and Plan: KUB not ordered, eating small amounts (5) Anemia of chronic disease: Code(s): D63.8 - Anemia in other chronic diseases classified elsewhere Status: Chronic Assessment and Plan: hb is 9 start iron supplementation creat is 1.5 history of CKD stage 3 Subjective Date/time seen: 05/11/20 13:57 Interval history: 84 year old female with a past medical history of dementia,diastolic heart failure, right ventricular heart failure with severe pulmonary hypertension, chronic atrial fibrillation and chronic kidney disease stage 3 who presented to the ER via EMS from home after having a fall. Pt is in AF with RVR watched on monitor. Pt has history of falls. Continue PT/ OT. For pacemaker on Tuesday. Coumadin on hold. Pt heart rate varies tachy- ariane syndrome. Today pts heart rate is low. Pt appears very sleepy today Review of Systems Review of Systems: All systems reviewed & are unremarkable except as noted in HPI and below Exam Narrative: Exam Narrative: Temp Pulse Resp BP Pulse Ox 36.1 C L 43 L 18 105/51 L 100 05/06/20 12:00 05/06/20 12:00 05/06/20 12:00 05/06/20 12:00 05/06/20 12:00 General: Elderly lady HEENT: large hematoma on the forehead, Respiratory: clear to auscultation bilaterally, Cardiovascular: bradycardic Skin: dried flaking skin generalized, feet are cold to touch Musculoskeletal: pitting edema to lower extremities, generalized weakness Neurological: alert and oriented times 1-2, speech is clear, no facial asymmetry, moves all extremities equally, but is weak and prone to falls Psychiatric: pleasantly confused Objective Data Vital Signs Vital Signs: Vital Signs - 24 hr 05/10/20 14:11 05/10/20 16:00 05/10/20 18:04 Temperature 36.2 C L Pulse Rate 54 L 55 L 68 Respiratory Rate 16 Blood Pressure 123/52 L Pulse Oximetry 100 05/10/20 19:37 05/10/20 20:00 05/10/20 20:07 Temperature 37.0 C Pulse Rate 54 L 64 64 Respiratory Rate 18 Blood Pressure 111/57 L Pulse Oximetry 100 05/10/20 21:58 05/11/20 00:00 05/11/20 02:00 Temperature 36.8 C Pulse Rate 59 L 51 L 59 L Respiratory Rate 18 Blood Pressure 116/58 L Pulse Oximetry 100 05/11/20 04:00 05/11/20 05:52 05/11/20 07:54 Temperature 36.9 C 35.7 C L Pulse Rate 57 L 57 L 56 L Respiratory Rate 18 16 Blood Pressure 117/73 130/58 L Pulse Oximetry 99 100 05/11/20 08:00 05/11/20 08:33 05/11/20 11:22 Temperature Pulse Rate 58 L 58 L 50 L Respiratory Rate Blood Pressure Pulse Oximetry 05/11/20 11:57 05/11/20 12:00 Temperature 36.0 C L Pulse Rate 53 L 53 L Respiratory Rate 16 Blood Pressure 136/66 Pulse Oximetry 100 Intake/Output Intake/Output: Intake & Output 05/08/20 05/09/20 05/10/20 05/11/20 23:59 23:59 23:59 23:59 Intake Total 360 580 610 150 Output Total 550 175 300 675 Balance -190 405 310 -525 Meds/Results Medica
[2020-05-11 17:40] LABS: Glucose Point of Care 150 (65-105)
[2020-05-11] MEDS: DONEPEZIL HCL 10 MG TABLET PO (20:16)
[2020-05-11] MEDS: HYDROCORTISONE 1% 30 GM CREAM 1 APPLIC TOPICAL (20:16)
[2020-05-11 20:36] LABS: Glucose Point of Care 160 (65-105)
[2020-05-12] VITALS (14 sets, daily range): BP systolic 115–150; BP diastolic 47–98; PULSE 51–64; RESP 18–20; TEMP 36.3–36.6; O2SAT 96–100; BMI 33.1
[2020-05-12 05:09] LABS: Basophils Percent Auto 0.3 % (0.2-1.2); Eosinophils Absolute Auto 0.2 K/mm3 (0-0.3); Hematocrit 27.8 % (37.0-47.0); Hemoglobin 8.8 g/dL (12.0-15.0); Immature Granulocyte Absolute 0.02 K/mm3 (0.00-0.031); Immature Granulocyte Percent A 0.5 % (0-0.5); Immature Platelet Fraction Pct 3.9 % (0.9-11.2); Lymphocytes Absolute Auto 0.62 K/mm3 (0.9-3.2); Lymphocytes Percent Auto 16.4 % (18.3-44.2); Mean Corpuscular HGB Conc 31.7 g/dl (32-36); Mean Corpuscular Hemoglobin 28.6 pg (26-34); Mean Corpuscular Volume 90.3 fl (80-100); Mean Platelet Volume 11.4 fl (7.4-10.4); Monocytes Absolute Auto 0.6 K/mm3 (0.1-0.6); Monocytes Percent Auto 16.7 % (2.6-8.5); Neutrophils Absolute Auto 2.3 K/mm3 (1.3-6.7); Neutrophils Percent Auto 62.1 % (45.5-73.1); Platelet Count Result 120 k/mm3 (150-375); Red Blood Count 3.08 M/mm3 (4.2-5.4); Red Cell Distribution Width 16.7 % (11.5-14.5); White Blood Count 3.8 K/mm3 (4.5-10.0)
[2020-05-12 05:20] LABS: INR 1.9; Prothrombin Time 21.6 Seconds (11.1-14.7)
[2020-05-12 05:23] LABS: Alanine Aminotransferase 9 U/L (4-35); Albumin Level 3.8 g/dL (3.5-5.1); Alkaline Phosphatase 80 U/L (38-126); Anion Gap 6 mmol/L (8-16); Aspartate Amino Transferase 16 U/L (14-36); Bilirubin,Total 1.7 mg/dL (0.2-1.3); Blood Urea Nitrogen 23 mg/dL (7-17); Calcium 9.3 mg/dL (8.4-10.2); Carbon Dioxide 21 mmol/L (22-30); Chloride 109 mmol/L (98-107); Estimated CRCL calculation 31 ml/min; Estimated Glomerular Filt Rate 40; Glucose 106 mg/dL (65-105); Potassium 4.8 mmol/L (3.4-5.0); Sodium 136 mmol/L (137-145)
--- NOTE | 2020-05-12 08:05 | PM.PNCARD ---
Progress Note: A&P Assessment and Plan (1) Atrial fibrillation: Code(s): I48.91 - Unspecified atrial fibrillation Status: Acute Assessment and Plan: On Warfarin. She has PAF/atrial tachycardia that changes to Junctional rhythm in 30-50 bpm range with a 3 second pause upon change in rhythm. She has tachybrady issue, and the ariane component may have caused her dizziness/fall. Stopped Digoxin. On Metoprolol 6.25 mg BID. She needs a pacemaker as antiarrhythmics would likely keep her in Juntional rhythm. She does walk around at home with a walker. Notified HCG of need for pacemaker. She is on Warfarin so we'll have to hold it and get her INR <1.5 before she can have her device placement. INR 1.9 today. (2) Pulmonary hypertension: Code(s): I27.20 - Pulmonary hypertension, unspecified Status: Acute Assessment and Plan: Had referred her to [facility] hypertension clinic. (3) CHF (congestive heart failure): Qualifiers: Heart failure type: diastolic Heart failure chronicity: acute on chronic Qualified Code(s): I50.33 - Acute on chronic diastolic (congestive) heart failure Code(s): I50.9 - Heart failure, unspecified Status: Chronic Assessment and Plan: She has chronic diastolic heart failure. Due to hyperkalemia, Spironolactone changed to Furosemide. On Furosemide 20 mg BID. Subjective Date/time seen: 05/12/20 08:05 Denies chest pain or sob or dizziness. Exam Const: General: comfortable and no acute distress Neck: Neck: no JVD Carotids: no bruits Resp: Auscultation: clear to auscultation bilaterally, no crackles, no rales, no rhonchi and no wheezes Cardio: Rate: bradycardic Rhythm: regular rhythm Heart sounds: no murmurs GI: Inspection: non-distended Extrem: Right lower extremity: edema Left lower extremity: edema Other: Mild edema of legs Objective Data Vital Signs Vital Signs: Vital Signs - 24 hr 05/11/20 08:33 05/11/20 11:22 05/11/20 11:57 Temperature 96.8 F L Pulse Rate 58 L 50 L 53 L Respiratory Rate 16 Blood Pressure 136/66 Pulse Oximetry 100 05/11/20 12:00 05/11/20 14:04 05/11/20 16:00 Temperature Pulse Rate 53 L 63 57 L Respiratory Rate Blood Pressure Pulse Oximetry 05/11/20 17:29 05/11/20 18:56 05/11/20 20:00 Temperature 96.5 F L 97.7 F Pulse Rate 61 61 63 Respiratory Rate 18 18 Blood Pressure 128/52 L 113/66 Pulse Oximetry 100 100 05/11/20 20:16 05/11/20 22:00 05/11/20 23:41 Temperature 97.9 F Pulse Rate 65 57 L 56 L Respiratory Rate 18 Blood Pressure 141/56 H Pulse Oximetry 97 05/12/20 00:00 05/12/20 02:00 05/12/20 04:00 Temperature 97.9 F Pulse Rate 54 L 58 L 56 L Respiratory Rate 20 Blood Pressure 121/51 L Pulse Oximetry 97 05/12/20 06:00 Temperature Pulse Rate 57 L Respiratory Rate Blood Pressure Pulse Oximetry Intake/Output Intake/Output: Intake & Output 05/09/20 05/10/20 05/11/20 05/12/20 23:59 23:59 23:59 23:59 Intake Total 580 610 386 200 Output Total 175 300 875 450 Balance 405 358 -093 -557 Meds/Results Medications: Active Medications Generic Name Dose Route Start Last Admin Trade Name [place] PRN Reason Stop Dose Admin Acetaminophen 650 mg 05/05/20 18:58 05/10/20 20:08 Tylenol Tablet PO 650 mg Q4H PRN Administration Mild Pain (1-3) or Fever Donepezil HCl 10 mg 05/06/20 21:00 05/11/20 20:16 Aricept PO 10 mg HS MOON Administration Ferrous Sulfate 324 mg 05/11/20 09:00 05/11/20 08:34 Ferrous Sulfate PO 324 mg DAILY MOON Administration Furosemide 20 mg 05/10/20 17:00 05/11/20 17:24 Lasix Tablet PO 20 mg BID MOON Administration Glimepiride 1 mg 05/06/20 08:00 05/09/20 09:18 Amaryl PO Not Given DAILY@0800 MOON Hydrocortisone 1 applic 05/11/20 21:00 05/11/20 20:16 Hydrocortisone 1% Cream TOPICAL 1 applic Q12HR MOON Administration L
[2020-05-12 08:40] LABS: Glucose Point of Care 91 (65-105)
[2020-05-12] MEDS: METOPROLOL TARTRATE 6.25 MG TABLET PO ×2 (09:11→20:32)
[2020-05-12] MEDS: FERROUS SULFATE 324 MG TABLET PO (09:12)
[2020-05-12] MEDS: HYDROCORTISONE 1% 30 GM CREAM 1 APPLIC TOPICAL ×2 (09:12→20:32)
[2020-05-12] MEDS: FUROSEMIDE 20 MG TABLET PO ×2 (09:12→17:32)
[2020-05-12 10:41] LABS: Hematocrit 28.2 % (37.0-47.0); Hemoglobin 8.9 g/dL (12.0-15.0); Immature Platelet Fraction Pct 3.5 % (0.9-11.2); Mean Corpuscular HGB Conc 31.6 g/dl (32-36); Mean Corpuscular Hemoglobin 28.7 pg (26-34); Mean Platelet Volume 11.9 fl (7.4-10.4); Platelet Count Result 136 k/mm3 (150-375); Red Cell Distribution Width 16.9 % (11.5-14.5); White Blood Count 4.1 K/mm3 (4.5-10.0)
[2020-05-12 12:29] LABS: Glucose Point of Care 129 (65-105)
--- NOTE | 2020-05-12 16:51 | PM.IMPN ---
Progress Note: A&P Assessment and Plan (1) Syncope: Code(s): R55 - Syncope and collapse Status: Acute Assessment and Plan: likely secondary to symptomatic bradycardia. Continue to monitor heart rate on telemetry in IMU. Today is bradycardic patient 84-year-old female with history dementia diastolic dysfunction as well as severe pulmonary hypertension with history of atrial fibrillation presented with RVR, patient also has been falling and attributed to Ariane tachycardia patient is seen by Cardiology recommending pacemaker which was scheduled for today however patient INR is 1.9 therefore cannot have a persistent today until INR is below 1.5, patient is clinically stable denies any complaint presently wants to go home, daughter is present in room helping provide history and review of symptoms, will continue to monitor INR and further recommendation to follow, once patient has a pacemaker clinically stable will have a PT OT evaluate the patient patient will benefit from acute rehab (2) Symptomatic bradycardia: Code(s): R00.1 - Bradycardia, unspecified Status: Acute Assessment and Plan: The patient has atrial fibrillation and was actually tachycardic in the ER. 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 Pt may benefit from pacemaker DR Mcintosh consulted . (3) Traumatic hematoma of forehead: Code(s): S00.83XA - Contusion of other part of head, initial encounter Status: Acute Assessment and Plan: patient has been placed on fall precautions. PT/ OT. (4) Nausea: Code(s): R11.0 - Nausea Status: Resolved Assessment and Plan: KUB not ordered, eating small amounts (5) Anemia of chronic disease: Code(s): D63.8 - Anemia in other chronic diseases classified elsewhere Status: Chronic Assessment and Plan: hb is 9 start iron supplementation creat is 1.5 history of CKD stage 3 Subjective Date/time seen: 05/12/20 16:51 Interval history: patient 84-year-old female with history dementia diastolic dysfunction as well as severe pulmonary hypertension with history of atrial fibrillation presented with RVR, patient also has been falling and attributed to Ariane tachycardia patient is seen by Cardiology recommending pacemaker which was scheduled for today however patient INR is 1.9 therefore cannot have a persistent today until INR is below 1.5, patient is clinically stable denies any complaint presently wants to go home, daughter is present in room helping provide history and review of symptoms, will continue to monitor INR and further recommendation to follow, once patient has a pacemaker clinically stable will have a PT OT evaluate the patient patient will benefit from acute rehab Review of Systems Review of Systems: All systems reviewed & are unremarkable except as noted in HPI and below Exam Narrative: Exam Narrative: elderly frail Const: General: comfortable and no acute distress HENMT: General nose exam: Normal nares present Eyes: Sclera: sclerae normal Neck: Neck: supple Resp: Effort & Inspection: normal respiratory effort Auscultation: clear to auscultation bilaterally Cardio: Other: irregularly irregular GI: Auscultation: normal bowel sounds Skin: General skin exam: normal color Neuro: Sensory Exam: normal sensation Other: patient with dementia Extrem: General: normal to inspection Psych: Other: patient with dementia Objective Data Vital Signs Vital Signs: Vital Signs - 24 hr 05/11/20 17:29 05/11/20 18:56 05/11/20 20:00 Temperature 96.5 F L 97.7 F Pulse Rate 61 61 63 Respiratory Rate 18 18 Blood Pressure 128/52 L 113/66 Pulse Oximetry 100 100 05/11/20 20:16 05/11/20 22:00 05/11/20 23:41 Temperature 97.9 F Pulse Rate 65 57 L 56 L Respiratory Rate 18 Blood Pressure 141/56 H Pulse Oximetry 97 05/12/20 00:00
[2020-05-12 17:26] LABS: Glucose Point of Care 206 (65-105)
[2020-05-12] MEDS: DONEPEZIL HCL 10 MG TABLET PO (20:32)
[2020-05-12 21:17] LABS: Glucose Point of Care 198 (65-105)
[2020-05-13] VITALS (18 sets, daily range): BP systolic 106–132; BP diastolic 46–74; PULSE 51–120; RESP 12–20; TEMP 35.8–37; O2SAT 96–100
[2020-05-13 07:35] LABS: INR 1.7; Prothrombin Time 19.8 Seconds (11.1-14.7)
[2020-05-13 07:54] LABS: Glucose Point of Care 143 (65-105)
--- NOTE | 2020-05-13 07:56 | PM.PNCARD ---
Progress Note: A&P Assessment and Plan (1) Atrial fibrillation: Code(s): I48.91 - Unspecified atrial fibrillation Status: Acute Assessment and Plan: On Warfarin. She has PAF/atrial tachycardia that changes to Junctional rhythm in 30-50 bpm range with a 3 second pause upon change in rhythm. She has tachybrady issue, and the ariane component may have caused her dizziness/fall. Stopped Digoxin. On Metoprolol 6.25 mg BID. She needs a pacemaker as antiarrhythmics would likely keep her in Juntional rhythm. She does walk around at home with a walker. Notified HCG of need for pacemaker. She is on Warfarin so we'll have to hold it and get her INR <1.5 before she can have her device placement. INR 1.7 today. (2) Pulmonary hypertension: Code(s): I27.20 - Pulmonary hypertension, unspecified Status: Acute Assessment and Plan: Had referred [facility] to [facility] hypertension clinic. (3) CHF (congestive heart failure): Qualifiers: Heart failure type: diastolic Heart failure chronicity: acute on chronic Qualified Code(s): I50.33 - Acute on chronic diastolic (congestive) heart failure Code(s): I50.9 - Heart failure, unspecified Status: Chronic Assessment and Plan: She has chronic diastolic heart failure. Due to hyperkalemia, Spironolactone changed to Furosemide. On Furosemide 20 mg BID. Subjective Date/time seen: 05/13/20 07:56 Denies chest pain or sob. Exam Const: General: comfortable and no acute distress Neck: Neck: no JVD Carotids: no bruits Resp: Auscultation: clear to auscultation bilaterally, no crackles, no rales, no rhonchi and no wheezes Cardio: Rate: bradycardic Rhythm: regular rhythm Heart sounds: no murmurs GI: Inspection: non-distended Extrem: Right lower extremity: edema Left lower extremity: edema Other: Mild edema of legs Objective Data Vital Signs Vital Signs: Vital Signs - 24 hr 05/12/20 08:00 05/12/20 09:11 05/12/20 10:11 Temperature 97.6 F Pulse Rate 60 58 L 51 L Respiratory Rate 20 Blood Pressure 115/47 L Pulse Oximetry 100 05/12/20 12:00 05/12/20 14:09 05/12/20 16:00 Temperature 97.3 F L 97.7 F Pulse Rate 56 L 56 L 63 Respiratory Rate 18 18 Blood Pressure 150/98 H 130/49 L Pulse Oximetry 100 98 05/12/20 18:38 05/12/20 20:00 05/12/20 20:32 Temperature 97.9 F Pulse Rate 64 63 64 Respiratory Rate 20 Blood Pressure 136/49 L Pulse Oximetry 96 05/12/20 22:00 05/13/20 00:00 05/13/20 02:00 Temperature 97.9 F Pulse Rate 58 L 63 60 Respiratory Rate 20 Blood Pressure 106/46 L Pulse Oximetry 96 05/13/20 04:00 05/13/20 06:00 Temperature 97.9 F Pulse Rate 61 65 Respiratory Rate 20 Blood Pressure 117/47 L Pulse Oximetry 97 Intake/Output Intake/Output: Intake & Output 05/10/20 05/11/20 05/12/20 05/13/20 23:59 23:59 23:59 23:59 Intake Total 883 323 9299 150 Output Total 545 304 4469 Balance 310 -239 -758 150 Meds/Results Medications: Active Medications Generic Name Dose Route Start Last Admin Trade Name Freq PRN Reason Stop Dose Admin Acetaminophen 650 mg 05/05/20 18:58 05/10/20 20:08 Tylenol Tablet PO 650 mg Q4H PRN Administration Mild Pain (1-3) or Fever Donepezil HCl 10 mg 05/06/20 21:00 05/12/20 20:32 Aricept PO 10 mg HS MOON Administration Ferrous Sulfate 324 mg 05/11/20 09:00 05/12/20 09:12 Ferrous Sulfate PO 324 mg DAILY MOON Administration Furosemide 20 mg 05/10/20 17:00 05/12/20 17:32 Lasix Tablet PO 20 mg BID MOON Administration Glimepiride 1 mg 05/06/20 08:00 05/09/20 09:18 Amaryl PO Not Given DAILY@0800 MOON Hydrocortisone 1 applic 05/11/20 21:00 05/12/20 20:32 Hydrocortisone 1% Cream TOPICAL 1 applic Q12HR MOON Administration Lactulose 20 gm 05/09/20 09:00 05/12/20 17:31 Lactulose PO Not Given BID MOON Metoprolol Tartrate 6.25 mg 05/08/20 21:00
[2020-05-13 08:17] LABS: Anion Gap 7 mmol/L (8-16); Blood Urea Nitrogen 26 mg/dL (7-17); Calcium 9.4 mg/dL (8.4-10.2); Carbon Dioxide 22 mmol/L (22-30); Chloride 109 mmol/L (98-107); Estimated CRCL calculation 31 ml/min; Estimated Glomerular Filt Rate 40; Glucose 132 mg/dL (65-105); Potassium 4.8 mmol/L (3.4-5.0); Sodium 138 mmol/L (137-145)
[2020-05-13] MEDS: FUROSEMIDE 20 MG TABLET PO ×2 (08:36→17:29)
[2020-05-13] MEDS: ACETAMINOPHEN 325 MG TABLET 650 MG PO ×2 (08:36→22:07)
[2020-05-13] MEDS: METOPROLOL TARTRATE 6.25 MG TABLET PO ×2 (08:37→20:08)
[2020-05-13] MEDS: HYDROCORTISONE 1% 30 GM CREAM 1 APPLIC TOPICAL ×2 (08:37→20:08)
[2020-05-13] MEDS: FERROUS SULFATE 324 MG TABLET PO (10:34)
[2020-05-13 12:41] LABS: Glucose Point of Care 220 (65-105)
--- NOTE | 2020-05-13 15:04 | PM.IMPN ---
Progress Note: A&P Assessment and Plan (1) Syncope: Code(s): R55 - Syncope and collapse Status: Acute Assessment and Plan: likely secondary to symptomatic bradycardia. Continue to monitor heart rate on telemetry in IMU. Today is bradycardic 05/13/20 15:04 patient 84-year-old female with history dementia diastolic dysfunction as well as severe pulmonary hypertension with history of atrial fibrillation presented with RVR, patient also has been falling and attributed to Ariane tachycardia patient is seen by Cardiology recommending pacemaker which was scheduled for today however patient INR is 1.7 therefore cannot have a cardiac pacemaker today until INR is below 1.5, patient is clinically stable denies any complaint presently wants to go home, will hold Coumadin and monitor INR and plan tomorrow if INR is below 1.5 (2) Symptomatic bradycardia: Code(s): R00.1 - Bradycardia, unspecified Status: Acute Assessment and Plan: The patient has atrial fibrillation and was actually tachycardic in the ER. 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 Pt may benefit from pacemaker DR Mcintosh consulted . (3) Traumatic hematoma of forehead: Code(s): S00.83XA - Contusion of other part of head, initial encounter Status: Acute Assessment and Plan: patient has been placed on fall precautions. PT/ OT. (4) Nausea: Code(s): R11.0 - Nausea Status: Resolved Assessment and Plan: KUB not ordered, eating small amounts (5) Anemia of chronic disease: Code(s): D63.8 - Anemia in other chronic diseases classified elsewhere Status: Chronic Assessment and Plan: hb is 9 start iron supplementation creat is 1.5 history of CKD stage 3 Subjective Date/time seen: 05/13/20 15:04 patient 84-year-old female with history dementia diastolic dysfunction as well as severe pulmonary hypertension with history of atrial fibrillation presented with RVR, patient also has been falling and attributed to Ariane tachycardia patient is seen by Cardiology recommending pacemaker which was scheduled for today however patient INR is 1.7 therefore cannot have a cardiac pacemaker today until INR is below 1.5, patient is clinically stable denies any complaint presently wants to go home, will hold Coumadin and monitor INR and plan tomorrow if INR is below 1.5 Exam Narrative: Exam Narrative: elderly frail Const: General: comfortable and no acute distress HENMT: General nose exam: Normal nares present Eyes: Sclera: sclerae normal Neck: Neck: supple Resp: Effort & Inspection: normal respiratory effort Auscultation: clear to auscultation bilaterally Cardio: Other: irregularly irregular GI: Auscultation: normal bowel sounds Skin: General skin exam: normal color Neuro: Sensory Exam: normal sensation Other: patient with dementia Extrem: General: normal to inspection Psych: Other: patient with dementia Objective Data Vital Signs Vital Signs: Vital Signs - 24 hr 05/12/20 16:00 05/12/20 18:38 05/12/20 20:00 Temperature 97.7 F 97.9 F Pulse Rate 63 64 63 Respiratory Rate 18 20 Blood Pressure 130/49 L 136/49 L Pulse Oximetry 98 96 05/12/20 20:32 05/12/20 22:00 05/13/20 00:00 Temperature 97.9 F Pulse Rate 64 58 L 63 Respiratory Rate 20 Blood Pressure 106/46 L Pulse Oximetry 96 05/13/20 02:00 05/13/20 04:00 05/13/20 06:00 Temperature 97.9 F Pulse Rate 60 61 65 Respiratory Rate 20 Blood Pressure 117/47 L Pulse Oximetry 97 05/13/20 07:59 05/13/20 08:00 05/13/20 08:37 Temperature 97.3 F L Pulse Rate 106 H 62 68 Respiratory Rate 12 Blood Pressure 116/60 Pulse Oximetry 100 05/13/20 10:00 05/13/20 11:51 05/13/20 12:00 Temperature 98.3 F Pulse Rate 53 L 58 L 51 L Respiratory Rate 14 Blood Pressure 109/54 L Pulse Oximetry 100 100 05/13/20 1
--- NOTE | 2020-05-13 15:16 | PCOTNOTE ---
The OT treatment was unable to be completed today, will continue plan of care 05/13/2020.
[2020-05-13 16:41] LABS: Glucose Point of Care 168 (65-105)
[2020-05-13] MEDS: DONEPEZIL HCL 10 MG TABLET PO (20:08)
[2020-05-13 20:36] LABS: Glucose Point of Care 218 (65-105)
[2020-05-14] VITALS (24 sets, daily range): BP systolic 95–125; BP diastolic 51–87; PULSE 60–145; RESP 14–22; TEMP 36–37.1; O2SAT 92–100
[2020-05-14 04:31] LABS: INR 1.7; Prothrombin Time 19.5 Seconds (11.1-14.7)
[2020-05-14 04:35] LABS: Anion Gap 5 mmol/L (8-16); Blood Urea Nitrogen 25 mg/dL (7-17); Calcium 9.1 mg/dL (8.4-10.2); Carbon Dioxide 23 mmol/L (22-30); Chloride 109 mmol/L (98-107); Estimated CRCL calculation 31 ml/min; Estimated Glomerular Filt Rate 40; Glucose 130 mg/dL (65-105); Potassium 4.5 mmol/L (3.4-5.0); Sodium 137 mmol/L (137-145)
--- NOTE | 2020-05-14 07:18 | WPDMODSED ---
Moderate Sedation Note-Pt Data Patient Data Diagnosis: atrial fibrillation with slow ventricular response Present Complaint: fatigue/near syncope Procedure to be performed/Plan: implantation of permanent ventricular pacemaker Allergies Allergy/AdvReac Type Severity Reaction Status Date / Time No Known Allergies Allergy Verified 05/05/20 17:06 Home Medications Medication Instructions Recorded Confirmed Type digoxin 125 mcg PO DAILY 08/19/19 05/05/20 History warfarin 2 mg PO DAILY 08/19/19 05/05/20 History spironolactone 25 mg PO QAM #30 tablet 08/22/19 05/05/20 Rx donepezil 10 mg PO HS 05/05/20 05/05/20 History glimepiride 1 mg PO DAILY 05/05/20 05/05/20 History metoprolol tartrate 50 mg PO Q12HR 05/05/20 05/05/20 History tramadol 50 mg PO TID PRN 05/05/20 05/05/20 History Current Medications: Active Medications Acetaminophen (Tylenol Tablet) 650 mg PO Q4H PRN PRN Reason: Mild Pain (1-3) or Fever Last Admin: 05/13/20 22:07 Dose: 650 mg Documented by: Donepezil HCl (Aricept) 10 mg PO HS [facility] Last Admin: 05/13/20 20:08 Dose: 10 mg Documented by: Ferrous Sulfate (Ferrous Sulfate) 324 mg PO DAILY [facility] Last Admin: 05/13/20 10:34 Dose: 324 mg Documented by: Furosemide (Lasix Tablet) 20 mg PO BID [facility] Last Admin: 05/13/20 17:29 Dose: 20 mg Documented by: Glimepiride (Amaryl) 1 mg PO DAILY@0800 [facility] Last Admin: 05/09/20 09:18 Dose: Not Given Documented by: Hydrocortisone (Hydrocortisone 1% Cream) 1 applic TOPICAL Q12HR [facility] Last Admin: 05/13/20 20:08 Dose: 1 applic Documented by: Cefazolin Sodium (Ancef 1 Gm/D5w 50 Ml Pm) 1 gm in 50 mls @ 100 mls/hr IVPB ONCE ONE Stop: 05/14/20 07:29 Lactulose (Lactulose) 20 gm PO BID [facility] Last Admin: 05/13/20 17:31 Dose: Not Given Documented by: Metoprolol Tartrate (Lopressor) 6.25 mg PO Q12HR [facility] Last Admin: 05/13/20 20:08 Dose: 6.25 mg Documented by: Ondansetron HCl (Zofran Inj) 4 mg IV PUSH Q4H PRN PRN Reason: Nausea Last Admin: 05/10/20 18:43 Dose: 4 mg Documented by: Polyethylene Glycol (Miralax) 17 gm PO QAM PRN PRN Reason: Constipation Tramadol HCl (Ultram) 50 mg PO TID PRN PRN Reason: Pain 4-6 Last Admin: 05/07/20 20:23 Dose: 50 mg Documented by: Warfarin Sodium (Coumadin) 2 mg PO DAILY@1700 [facility] Last Admin: 05/08/20 17:26 Dose: 2 mg Documented by: Sedation/Anesthesia: No previous sedation/anesthesia problems (including family history). [facility] Past Medical History Medical History (Updated 05/10/20 @ 15:58 by Savanah Avalos MD) Anemia of chronic disease Arthritis Atrial fibrillation Cataracts, bilateral CHF (congestive heart failure) Diastolic Chronic right-sided heart failure echocardiogram July 2019 demonstrated EF of 55-60%, moderately increased left ventricular wall thickness, diastolic function is abnormal, right ventricular chamber severely enlarged, right ventricular systolic function severely reduced, severe biatrial enlargement, mild mitral valve regurgitation, moderate tricuspid valve regurgitation, severe pulmonary hypertension with RVSP of 91, mild pulmonic regurgitation, small atheroma anterior and posterior aortic root, dilated inferior vena cava was greater than 50% collapse consistent with significantly elevated right atrial pressures Cirrhosis of liver with ascites CKD (chronic kidney disease) stage 3, GFR 30-59 ml/min CVA (cerebral vascular accident) 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 On oral medication. Essential hypertension Multinodular goiter normal TSH 07/2019 Peripheral neuropathy Seizures Severe pulmonary arterial systolic hypertension Surgical History Surgical History (Updated 05/05/20 @ 23:44 by Cecy Saravia DO) History of gastric bypass History of total right knee replacement Status post cholecystectomy Family History Family History (Updated 05/05/20 @ 23:31 by Cecy Rangel
--- NOTE | 2020-05-14 07:35 | PCOTNOTE ---
Attempted to see Patient for A.M. treatment session. Patient is out of the room at this time having a pacemaker placed.
--- NOTE | 2020-05-14 07:35 | PC.NURSE ---
Pt to metallurgical lab technician for pacemaker placement.
[2020-05-14 08:36] LABS: Glucose Point of Care 108 (65-105)
--- NOTE | 2020-05-14 10:09 | ECG_ITS ---
Measurements Intervals [place] Rate: 130 P: MI: 0 QRS: -51 QRSD: 107 T: 203 QT: 296 QTc: 436 Interpretive Statements ATRIAL FIBRILLATION WITH RAPID VENTRICULAR RESPONSE INCOMPLETE RIGHT BUNDLE BRANCH BLOCK DELAYED PRECORDIAL R/S TRANSITION BORDERLINE ST-T WAVE ABNORMALITY- DIFFUSE LEADS ABNORMAL ECG Electronically Signed On 05-14-2020 11:25:40 CDT by Jude Mcintosh D.O.
--- NOTE | 2020-05-14 10:11 | WPDCARDPROC ---
Cardiac Cath Procedure Note Date of procedure:: 05/14/20 Performing physician:: Yuri Reese MD Indication:: symptomatic bradycardia, AFib with slow ventricular response Brief clinical history:: this is an 84-year-old woman with chronic atrial fibrillation / atrial flutter. She entered the hospital with symptomatic bradycardia and with significant asystolic pauses pacemaker implantation was recommended. She was systemically anticoagulated and Coumadin was withdrawn at the end of last week. INR is now subtherapeutic. She was brought to the laborer ammunition assembly for implantation of permanent ventricular pacemaker. Procedure Procedure performed:: Implantation of permanent Medtronic VVI pacemaker. Sedation/Medication given:: Versed 5 mg case start time 8:01 a.m. case end time 10:04 a.m. sedation provided by Lis Gupta RN, trained observer Access site:: right subclavian Estimated blood loss:: 20 cc Procedure note:: patient was brought to the cardiac catheterization lab in the postabsorptive state the left anterior chest wall was prepped draped usual fashion. Patient was given Ancef prior to the procedure. She received intravenous lidocaine locally injected below the clavicle. An incision was then made from midclavicular line to the deltopectoral groove about 1 in below the clavicle. Sharp and blunt dissection was used to separate the subcutaneous tissue with electrocautery was used to provide cutaneous hemostasis. Following this pacemaker pocket was created inferior to the incision along the fascial plane using blunt dissection. Pocket was packed with an antibiotic soaked 4 x 4. A number of attempts were made to puncture the left subclavian vein which was unsuccessful. I then elected to perform a venogram. The 1st venogram from the left upper extremity was unsuccessful because the IV was infiltrated and the contrast was extravasated. IV access was then established and a venogram was performed. 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 Pacemaker from this implant site in the was therefore not feasible. I then sutured the pocket in standard fashion using 3 0 Vicryl in an interrupted fashion for the subcutaneous tissue And 4 0Vicryl for the skin. We stressed with an Aquacel dressing. following this the patient was undraped and the right anterior chest wall was prepped and draped in the usual sterile fashion. I then performed a venogram from the right upper extremities with sugar venous anatomy was appropriate. The right subclavian vein was rather tortuous and inferiorly deviated but it did empty into the right atrium in standard position. Following this I used a micro puncture kit to puncture the right subclavian vein and access the venous circulation and exchanged this for a standard 035 guidewire and then used a 5 Latvian vascular dilator followed by the 6 Latvian pacemaker peel-away sheath assembly to access the venous circulation. Following this the pacemaker lead detailed below was placed into the venous circulation and into the level of the right atrium. Multiple attempts were made to place the lead into the right atrium several were unsuccessful as the coronary sinus was obviously very large and the lead would advanced into the coronary sinus a number of times. Finally I was able to access the right ventricle/ PA and with care advanced a soft stylet into the lead and retained position in the RV. Lead was then advanced into the RV apex where the fixation screw was deployed and the lead was tested. Using the analyzer there was appropriate pacing and sensing performance and attempt both stimulus showed no evidence of extracardiac stimulation. The peel-away sheath was then removed and the stylet was used to advance the body of the lead so with adequate slack was abrupt present in the lead. The lead was then secured to the base of the pocket using the supplied suture sleev
--- NOTE | 2020-05-14 11:00 | PCPTNOTE ---
Patient out of room for procedure this A.M. PT will continue to follow.
--- NOTE | 2020-05-14 11:35 | PC.NURSE ---
Pt returned from laborer [facility]
[2020-05-14] MEDS: SODIUM CHLORIDE 0.9% IV 1,000 ML 50 ML IV CONT (11:56)
[2020-05-14 12:20] LABS: Glucose Point of Care 106 (65-105)
--- NOTE | 2020-05-14 12:29 | PM.PNCARD ---
Progress Note: A&P Assessment and Plan (1) Atrial fibrillation: Code(s): I48.91 - Unspecified atrial fibrillation Status: Acute Assessment and Plan: On Warfarin. She has PAF/atrial tachycardia that changes to Junctional rhythm in 30-50 bpm range with a 3 second pause upon change in rhythm. She has tachybrady issue, and the ariane component may have caused her dizziness/fall. She is tachycardic now in atrial fibrillation. Increase Metoprolol 12.5 mg every 6 hours with BP parameters. Resume usual dose of warfarin if OK with Dr. Reese. S/P pacemaker insertion this morning by Dr. Reese. (2) Pulmonary hypertension: Code(s): I27.20 - Pulmonary hypertension, unspecified Status: Acute Assessment and Plan: Had referred her to [facility] hypertension clinic. (3) CHF (congestive heart failure): Qualifiers: Heart failure type: diastolic Heart failure chronicity: acute on chronic Qualified Code(s): I50.33 - Acute on chronic diastolic (congestive) heart failure Code(s): I50.9 - Heart failure, unspecified Status: Chronic Assessment and Plan: She has chronic diastolic heart failure. Due to hyperkalemia, Spironolactone changed to Furosemide. On Furosemide 20 mg BID. (4) Pacemaker: Code(s): Z95.0 - Presence of cardiac pacemaker Status: Acute Subjective Date/time seen: 05/14/20 12:29 Tito returned from pacemaker implant. Telemetry shows HR is fast at 166 bpm in atrial fibrillation. Exam Const: General: no acute distress Neck: Neck: no JVD Carotids: no bruits Resp: Auscultation: clear to auscultation bilaterally, no crackles, no rales, no rhonchi and no wheezes Cardio: Rate: tachycardic Rhythm: abnormal rhythm GI: Inspection: non-distended Extrem: Right lower extremity: no edema Left lower extremity: no edema Objective Data Vital Signs Vital Signs: Vital Signs - 24 hr 05/13/20 14:00 05/13/20 16:00 05/13/20 18:00 Temperature 98.6 F Pulse Rate 60 60 120 H Respiratory Rate 18 Blood Pressure 120/60 Pulse Oximetry 100 05/13/20 19:52 05/13/20 20:00 05/13/20 20:08 Temperature 96.4 F L Pulse Rate 118 H 119 H 118 H Respiratory Rate 18 Blood Pressure 132/68 Pulse Oximetry 100 100 05/13/20 22:00 05/13/20 23:36 05/14/20 00:00 Temperature 97.0 F L Pulse Rate 114 H 113 H 114 H Respiratory Rate 18 Blood Pressure 123/74 Pulse Oximetry 100 05/14/20 02:00 05/14/20 04:00 05/14/20 04:09 Temperature 97.5 F L Pulse Rate 115 H 117 H 117 H Respiratory Rate 18 Blood Pressure 125/65 Pulse Oximetry 100 05/14/20 06:00 05/14/20 07:30 05/14/20 10:30 Temperature 96.9 F L Pulse Rate 118 H 108 H 140 H Respiratory Rate 18 14 Blood Pressure 113/63 109/76 Pulse Oximetry 100 96 05/14/20 10:45 05/14/20 11:00 05/14/20 11:30 Temperature Pulse Rate 130 H 130 H 124 H Respiratory Rate 14 15 14 Blood Pressure 109/68 105/87 110/71 Pulse Oximetry 92 98 96 05/14/20 11:44 05/14/20 11:48 Temperature Pulse Rate 131 H Respiratory Rate Blood Pressure Pulse Oximetry 96 Intake/Output Intake/Output: Intake & Output 05/11/20 05/12/20 05/13/20 05/14/20 23:59 23:59 23:59 23:59 Intake Total 386 1160 750 250 Output Total 875 1750 700 Balance -489 -590 50 250 Meds/Results Medications: Active Medications Generic Name Dose Route Start Last Admin Trade Name Belem PRN Reason Stop Dose Admin Acetaminophen 650 mg 05/05/20 18:58 05/13/20 22:07 Tylenol Tablet PO 650 mg Q4H PRN Administration Mild Pain (1-3) or Fever Donepezil HCl 10 mg 05/06/20 21:00 05/13/20 20:08 Aricept PO 10 mg HS MOON Administration Ferrous Sulfate 324 mg 05/11/20 09:00 05/13/20 10:34 Ferrous Sulfate PO 324 mg DAILY MOON Administration Furosemide 20 mg 05/10/20 17:00 05/13/20 17:29 Lasix Tablet PO 20 mg BID MOON Administration Glimep
[2020-05-14] MEDS: HYDROCORTISONE 1% 30 GM CREAM 1 APPLIC TOPICAL ×2 (14:07→21:02)
[2020-05-14] MEDS: FERROUS SULFATE 324 MG TABLET PO (14:07)
--- NOTE | 2020-05-14 14:30 | PC.NURSE ---
Rosalina Ndiaye NP notified of patient's heart rate in the 160's. Notified that RN will need to call Dr. Mcintosh for rate control medications, at this time pt's heart rate converted on it's own to 80's. Will notify Dr. Mcintosh if heart rate increases again.
--- NOTE | 2020-05-14 15:30 | PM.IMPN ---
Progress Note: A&P Assessment and Plan (1) Syncope: Code(s): R55 - Syncope and collapse Status: Acute Assessment and Plan: likely secondary to symptomatic bradycardia. Continue to monitor heart rate on telemetry in IMU. Today is bradycardic 05/13/20 15:04 05/14/20 15:30 patient 84-year-old female with history dementia diastolic dysfunction as well as severe pulmonary hypertension with history of atrial fibrillation presented with RVR, patient also has been falling and attributed to Ariane tachycardia patient is seen by Cardiology recommending pacemaker which was scheduled for today however patient INR is 1.7 therefore cannot have a cardiac pacemaker today until INR is below 1.5, however are INR today is 1.7 patient was taken to the cardiac labor standards director and had a pacemaker placed, currently patient clinically stable has no complaints, her daughter is present in the room, audience development manager will check patient surgical wound before restarting Coumadin in 1 week, if remains clinically stable, will discharge patient tomorrow. (2) Symptomatic bradycardia: Code(s): R00.1 - Bradycardia, unspecified Status: Acute Assessment and Plan: The patient has atrial fibrillation and was actually tachycardic in the ER. 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 Pt may benefit from pacemaker DR Mcintosh consulted . (3) Traumatic hematoma of forehead: Code(s): S00.83XA - Contusion of other part of head, initial encounter Status: Acute Assessment and Plan: patient has been placed on fall precautions. PT/ OT. (4) Nausea: Code(s): R11.0 - Nausea Status: Resolved Assessment and Plan: KUB not ordered, eating small amounts (5) Anemia of chronic disease: Code(s): D63.8 - Anemia in other chronic diseases classified elsewhere Status: Chronic Assessment and Plan: hb is 9 start iron supplementation creat is 1.5 history of CKD stage 3 Subjective Date/time seen: 05/14/20 15:30 patient 84-year-old female with history dementia diastolic dysfunction as well as severe pulmonary hypertension with history of atrial fibrillation presented with RVR, patient also has been falling and attributed to Ariane tachycardia patient is seen by Cardiology recommending pacemaker which was scheduled for today however patient INR is 1.7 therefore cannot have a cardiac pacemaker today until INR is below 1.5, however are INR today is 1.7 patient was taken to the cardiac labor standards director and had a pacemaker placed, currently patient clinically stable has no complaints, her daughter is present in the room, audience development manager will check patient surgical wound before restarting Coumadin in 1 week, if remains clinically stable, will discharge patient tomorrow. Review of Systems Review of Systems: All systems reviewed & are unremarkable except as noted in HPI and below Exam Const: General: comfortable and no acute distress HENMT: General nose exam: Normal nares present Mouth: Yes moist mucous membranes Eyes: General: appearance normal, both eyes and all related structures Sclera: sclerae normal Neck: Neck: supple Resp: Effort & Inspection: normal respiratory effort Auscultation: clear to auscultation bilaterally Cardio: Rate: regular rate Rhythm: regular rhythm GI: Auscultation: normal bowel sounds Skin: General skin exam: normal color Neuro: Speech: normal speech Sensory Exam: normal sensation Extrem: General: normal to inspection Psych: Affect: normal affect Objective Data Vital Signs Vital Signs: Vital Signs - 24 hr 05/13/20 16:00 05/13/20 18:00 05/13/20 19:52 Temperature 98.6 F 96.4 F L Pulse Rate 60 120 H 118 H Respiratory Rate 18 18 Blood Pressure 120/60 132/68 Pulse Oximetry 100 100 05/13/20 20:00 05/13/20 20:08 05/13/20 22:00 Temperature Pulse Rate 119 H 118 H 114 H Respiratory Rate
[2020-05-14 16:39] LABS: Glucose Point of Care 99 (65-105)
[2020-05-14] MEDS: METOPROLOL TARTRATE 12.5 MG TABLET PO (18:36)
[2020-05-14] MEDS: FUROSEMIDE 20 MG TABLET PO (18:36)
[2020-05-14 20:54] LABS: Glucose Point of Care 205 (65-105)
[2020-05-14] MEDS: DONEPEZIL HCL 10 MG TABLET PO (21:02)
[2020-05-14] MEDS: METOPROLOL TARTRATE 25 MG TABLET PO (21:02)
[2020-05-14] MEDS: ACETAMINOPHEN 325 MG TABLET 650 MG PO (21:03)
[2020-05-15] VITALS (13 sets, daily range): BP systolic 108–119; BP diastolic 49–59; PULSE 60; RESP 18–20; TEMP 36.2–36.6; O2SAT 96–100
--- NOTE | 2020-05-15 07:12 | ECG_ITS ---
Measurements Intervals [place] Rate: 60 P: MD: 0 QRS: -68 QRSD: 192 T: 118 QT: 520 QTc: 520 Interpretive Statements ELECTRONIC VENTRICULAR PACEMAKER BASELINE WANDER- I, II, AVR, AVL, AVF, V1-V6 NO FURTHER INTERPRETATION IS POSSIBLE ATYPICAL ECG Electronically Signed On 05-15-2020 14:07:11 CDT by Jude Mcintosh D.O.
[2020-05-15 07:56] LABS: Glucose Point of Care 112 (65-105)
[2020-05-15 09:08] LABS: Hematocrit 26.5 % (37.0-47.0); Hemoglobin 8.4 g/dL (12.0-15.0); Mean Corpuscular HGB Conc 31.7 g/dl (32-36); Mean Corpuscular Hemoglobin 29.1 pg (26-34); Mean Corpuscular Volume 91.7 fl (80-100); Mean Platelet Volume 12.3 fl (7.4-10.4); Platelet Count Result 111 k/mm3 (150-375); Red Blood Count 2.89 M/mm3 (4.2-5.4); Red Cell Distribution Width 16.5 % (11.5-14.5); White Blood Count 4.2 K/mm3 (4.5-10.0)
[2020-05-15 09:26] LABS: Anion Gap 7 mmol/L (8-16); Blood Urea Nitrogen 23 mg/dL (7-17); Carbon Dioxide 23 mmol/L (22-30); Chloride 108 mmol/L (98-107); Estimated CRCL calculation 31 ml/min; Estimated Glomerular Filt Rate 44; Glucose 124 mg/dL (65-105); Potassium 4.4 mmol/L (3.4-5.0); Sodium 138 mmol/L (137-145)
[2020-05-15] MEDS: METOPROLOL TARTRATE 25 MG TABLET PO (09:31)
[2020-05-15] MEDS: FERROUS SULFATE 324 MG TABLET PO (09:31)
[2020-05-15] MEDS: FUROSEMIDE 20 MG TABLET PO (09:31)
[2020-05-15] MEDS: HYDROCORTISONE 1% 30 GM CREAM 1 APPLIC TOPICAL (09:32)
[2020-05-15] MEDS: ACETAMINOPHEN 325 MG TABLET 650 MG PO (09:32)
--- NOTE | 2020-05-15 09:45 | PM.PNCARD ---
Progress Note: A&P Assessment and Plan (1) Atrial fibrillation: Code(s): I48.91 - Unspecified atrial fibrillation Status: Acute Assessment and Plan: On Warfarin. She has PAF/atrial tachycardia that changes to Junctional rhythm in 30-50 bpm range with a 3 second pause upon change in rhythm. She has tachybrady issue, and the ariane component may have caused her dizziness/fall. She is tachycardic now in atrial fibrillation. Increase Metoprolol 25 mg every 12 hours with BP parameters. Resume usual dose of warfarin if OK with Dr. Reese. Incisional PPM wound care per HCG. S/P pacemaker insertion this morning by Dr. Reese POD #1. (2) Pulmonary hypertension: Code(s): I27.20 - Pulmonary hypertension, unspecified Status: Acute Assessment and Plan: Had referred her to [facility] hypertension clinic. (3) CHF (congestive heart failure): Qualifiers: Heart failure type: diastolic Heart failure chronicity: acute on chronic Qualified Code(s): I50.33 - Acute on chronic diastolic (congestive) heart failure Code(s): I50.9 - Heart failure, unspecified Status: Chronic Assessment and Plan: She has chronic diastolic heart failure. Due to hyperkalemia, Spironolactone changed to Furosemide. On Furosemide 20 mg BID. (4) Pacemaker: Code(s): Z95.0 - Presence of cardiac pacemaker Status: Acute Subjective Date/time seen: 05/15/20 09:45 Patient is sitting at side of bed. No chest pain or sob. Exam Const: General: no acute distress Neck: Neck: no JVD Carotids: no bruits Resp: Auscultation: clear to auscultation bilaterally, no crackles, no rales, no rhonchi and no wheezes Cardio: Rate: regular rate and not tachycardic Rhythm: regular rhythm and regular rhythm Heart sounds: no murmurs GI: Inspection: non-distended Neuro: Speech: normal speech Extrem: Right lower extremity: no edema Left lower extremity: no edema Objective Data Vital Signs Vital Signs: Vital Signs - 24 hr 05/14/20 10:30 05/14/20 10:45 05/14/20 11:00 Temperature Pulse Rate 140 H 130 H 130 H Respiratory Rate 14 14 15 Blood Pressure 109/76 109/68 105/87 Pulse Oximetry 96 92 98 08/19/20 11:30 05/14/20 11:44 05/14/20 11:48 Temperature Pulse Rate 124 H 131 H Respiratory Rate 14 Blood Pressure 110/71 Pulse Oximetry 96 96 05/14/20 11:54 05/14/20 12:30 05/14/20 14:00 Temperature 96.8 F L 97.5 F L 96.9 F L Pulse Rate 93 112 H 70 Respiratory Rate 20 20 20 Blood Pressure 106/78 97/63 L 95/57 L Pulse Oximetry 100 100 100 05/14/20 14:59 05/14/20 16:00 05/14/20 18:00 Temperature 97.6 F 97.6 F Pulse Rate 88 71 82 Respiratory Rate 22 H 22 H Blood Pressure 110/65 103/51 L Pulse Oximetry 98 96 05/14/20 18:36 05/14/20 19:21 05/14/20 20:00 Temperature 97.4 F L Pulse Rate 84 83 60 Respiratory Rate 20 Blood Pressure 122/58 L Pulse Oximetry 100 100 05/14/20 21:02 05/14/20 22:00 05/14/20 23:59 Temperature 98.8 F Pulse Rate 60 60 60 Respiratory Rate 18 Blood Pressure 104/52 L Pulse Oximetry 100 05/15/20 00:00 05/15/20 02:00 05/15/20 04:00 Temperature Pulse Rate 60 60 60 Respiratory Rate Blood Pressure Pulse Oximetry 100 100 05/15/20 05:07 05/15/20 06:00 05/15/20 09:31 Temperature 97.2 F L Pulse Rate 60 60 60 Respiratory Rate 18 Blood Pressure 119/56 L Pulse Oximetry 100 05/15/20 09:43 Temperature 97.8 F Pulse Rate 60 Respiratory Rate 20 Blood Pressure 118/59 L Pulse Oximetry 97 Intake/Output Intake/Output: Intake & Output 05/12/20 05/13/20 05/14/20 05/15/20 23:59 23:59 23:59 23:59 Intake Total 8422 004 6301 200 Output Total 1750 700 700 Balance -242 98 1376 -500 Meds/Results Medications: Active Medications Generic Name Dose Route Start Last Admin Trade Name Freq PRN Reason Stop Dose Admin Acetaminophen 650 mg 05/05/20 18:58 05/15/20 09:32 T
--- NOTE | 2020-05-15 11:10 | PM.EVENT ---
Event Note Event Note Event Note: Wound check post [employer] single chamber pacemaker 05/14/[address] Reese. Pacemaker is functioning normally. Right subclavian Aquacel dressing intact with no drainage. No swelling. Left subclavian Aquacel dressing intact. No drainage. Slight edema. No ecchymosis. Chest x-ray reveals no pneumothorax. Released from immobilizer with instructions not to lift her right arm above shoulder height for 1 month. Recommend immobilizer at night. OK to discharge from a pacemaker standpoint. See discharge instructions for follow-up. All other cardiac care per Dr Mcintosh. Plan discussed with Dr Guzmán 1110 05/15/2020
[2020-05-15 11:57] LABS: Glucose Point of Care 222 (65-105)
[2020-05-15 14:35] LABS: INR 1.7; Prothrombin Time 19.4 Seconds (11.1-14.7)
--- NOTE | 2020-05-15 15:50 | PM.DS ---
DS: Admitting Diagnosis Admitting Diagnosis Admitting Diagnosis: AFib with slow ventricular response/status post pa DS: Discharge Diagnosis Discharge Diagnosis (1) Syncope: Code(s): R55 - Syncope and collapse Status: Acute Assessment and Plan: likely secondary to symptomatic bradycardia. Continue to monitor heart rate on telemetry in IMU. Today is bradycardic 05/13/20 15:04 05/14/20 15:30 patient 84-year-old female with history dementia diastolic dysfunction as well as severe pulmonary hypertension with history of atrial fibrillation presented with RVR, patient also has been falling and attributed to Ariane tachycardia patient is seen by Cardiology recommending pacemaker which was scheduled for today however patient INR is 1.7 therefore cannot have a cardiac pacemaker today until INR is below 1.5, however are INR today is 1.7 patient was taken to the cardiac labor operator and had a pacemaker placed, currently patient clinically stable has no complaints, her daughter is present in the room, president + publisher will check patient surgical wound before restarting Coumadin in 1 week, if remains clinically stable, will discharge patient tomorrow. (2) Symptomatic bradycardia: Code(s): R00.1 - Bradycardia, unspecified Status: Acute Assessment and Plan: The patient has atrial fibrillation and was actually tachycardic in the ER. 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 Pt may benefit from pacemaker DR Mcintosh consulted . (3) Traumatic hematoma of forehead: Code(s): S00.83XA - Contusion of other part of head, initial encounter Status: Acute Assessment and Plan: patient has been placed on fall precautions. PT/ OT. (4) Nausea: Code(s): R11.0 - Nausea Status: Resolved Assessment and Plan: KUB not ordered, eating small amounts (5) Anemia of chronic disease: Code(s): D63.8 - Anemia in other chronic diseases classified elsewhere Status: Chronic Assessment and Plan: hb is 9 start iron supplementation creat is 1.5 history of CKD stage 3 DS: Summary Hospital Course Reason for hospitalization: Chief complaint: fall, head injury Narrative: source of information is past medical records. The patient is only alert and oriented x2 in can provide no additional information regarding her reason for admission. Maria Alejandra Nuenz is a 84 year old female with a past medical history of dementia,diastolic heart failure, right ventricular heart failure with severe pulmonary hypertension, chronic atrial fibrillation and chronic kidney disease stage 3 who presented to the ER via EMS from home after having a fall. The patient was assisted to Toilet by her family. As soon as she sat down she began to lose her balance and felt as if she was going to pass out. The patient then fell to the right and hit her head on the floor. The patient did not lose consciousness. the patient is got some chronic confusion due to her dementia. She is only alert orient times 1-2 at the time of my evaluation. Per EMS the patient had a large bowel movement in transit to the ER. The patient was evidently started on a new antipsychotic recently due to hallucinations. In the ER the patient was noted to be in atrial fibrillation with a heart rate as high as 132. Once she arrived to the IMU the patient was having episodes of bradycardia with a heart rate as low as 32. she is on chronic anticoagulation with Coumadin. When patient arrived the ER she had an obvious hematoma to or forehead. She had reported a mild headache prior to my evaluation and had received Tylenol. She denies a headache currently. She does report that her legs chronically hurt. Her legs were cool to touch and we were unable to palpate pulses but the patient did have pulses that were Dopplered. She reports that her leg pain is in her thighs. She said that the doctors have told her in
--- NOTE | 2020-05-15 16:25 | PCOTNOTE ---
13:54 - Attempted to see patient this P.M. for skilled OT session. After entry, Cardio Staff entered and requested EKG at this time. Will try to attempt session again this P.M. if possible.
--- NOTE | 2020-05-15 16:28 | PCOTNOTE ---
The patient treatment was not able to be completed on 05/15/2020 due to time restraint. Will plan to continue treatment per plan of care.
--- NOTE | 2020-05-15 16:33 | PCPTNOTE ---
The patient treatment was not able to be completed on 05/15/2020. Will plan to continue treatment per plan of care.
== END 2020-05-15 17:20 | disposition home health service (06) | DRG 243 ==
LOC: ANHED 19:01 → ANHIMU 21:23
PROVIDERS: Emergency Medicine; Family Medicine; Internal Medicine Cardiovascular Disease; Specialist; Admitting Provider Internal Medicine; Emergency Provider Emergency Medicine; PCP Family Medicine; Visit Provider Family Medicine
PROC: 0JH606Z Insertion of Pacemaker, Dual Chamber into Chest Subcutaneous Tissue and Fascia, Open Approach (ICD-10-PCS; CPT 33208; principal; 2020-05-14 07:30)
DX: I48.91 Unspecified atrial fibrillation (principal); I13.0 Hypertensive heart and chronic kidney disease with heart failure and stage 1 through stage 4 chronic kidney disease, or unspecified chronic kidney disease; I50.32 Chronic diastolic (congestive) heart failure; I49.5 Sick sinus syndrome; R55 Syncope and collapse; I27.20 Pulmonary hypertension, unspecified; E11.22 Type 2 diabetes mellitus with diabetic chronic kidney disease; N18.3 Chronic kidney disease, stage 3 (moderate); D63.1 Anemia in chronic kidney disease; I50.812 Chronic right heart failure; S00.83XA Contusion of other part of head, initial encounter; W18.30XA Fall on same level, unspecified, initial encounter; F03.90 Unspecified dementia, unspecified severity, without behavioral disturbance, psychotic disturbance, mood disturbance, and anxiety; E11.36 Type 2 diabetes mellitus with diabetic cataract; H26.9 Unspecified cataract; E11.43 Type 2 diabetes mellitus with diabetic autonomic (poly)neuropathy; E87.5 Hyperkalemia; Z79.01 Long term (current) use of anticoagulants; Z86.73 Personal history of transient ischemic attack (TIA), and cerebral infarction without residual deficits; Z98.84 Bariatric surgery status; Z96.651 Presence of right artificial knee joint
CPT/HCPCS: 33208; 36415; 51701; 70450; 71045; 71046; 71275; 72125; 80048; 80053; 80162; 81001; 83735; 84443; 84484; 85025; 85027; 85055; 85380; 85610; 85730; 93005; 97110; 97161; 97166; 97530; 97535; 99285; A9270; C1769; C1779; C1786; C1894; J0690; J2250; J2405; J3010; J7030; J7040; Q9967

== ENCOUNTER 2020-06-26 17:00 | Outpatient (RCR) | payer MEDICARE, OTHER, SELFPAY ==
[2020-06-26 17:49] LABS: Add Urine Microscopic? YES; Appearance Urine Clear (Clear); Bilirubin Urine Negative (Negative); Blood Urine Negative (Negative); Color Urine Yellow (Yellow); Glucose Urine UA Negative (Negative); Ketones Urine Negative (Negative); Leukocyte Esterase Ur Negative LEU/UL (Negative); Mucus Urine Rare /lpf; Nitrate Urine Negative (Negative); Protein Urine 1+ mg/dL (Negative); RBC Urine 0-2 /hpf (0-2); Specific Grav Ur 1.015 (1.001-1.035); Squamous Epithelial Cell Urine Many /hpf (Few); WBC Urine 0-3 /hpf
== END 2020-09-24 23:59 | disposition home or self-care (01) ==
LOC: HOME HLTH 17:00
PROVIDERS: PCP Family Medicine; Visit Provider Family Medicine
DX: R35.0 Frequency of micturition (principal)
CPT/HCPCS: 81001

== ENCOUNTER 2020-07-04 16:02 | Outpatient (NON) | payer MEDICARE, MEDICAID, SELFPAY ==
[2020-07-04 16:45] LABS: Basophils Percent Auto 0.3 % (0.2-1.2); Eosinophils Absolute Auto 0.1 K/mm3 (0-0.3); Eosinophils Percent Auto 3.9 % (0-4.4); Hematocrit 30.2 % (37.0-47.0); Hemoglobin 9.4 g/dL (12.0-15.0); Immature Granulocyte Absolute 0.01 K/mm3 (0.00-0.031); Immature Granulocyte Percent A 0.3 % (0-0.5); Lymphocytes Absolute Auto 0.44 K/mm3 (0.9-3.2); Lymphocytes Percent Auto 12.3 % (18.3-44.2); Mean Corpuscular HGB Conc 31.1 g/dl (32-36); Mean Corpuscular Hemoglobin 29.1 pg (26-34); Mean Corpuscular Volume 93.5 fl (80-100); Mean Platelet Volume 11.9 fl (7.4-10.4); Monocytes Absolute Auto 0.5 K/mm3 (0.1-0.6); Monocytes Percent Auto 14.8 % (2.6-8.5); Neutrophils Absolute Auto 2.5 K/mm3 (1.3-6.7); Neutrophils Percent Auto 68.4 % (45.5-73.1); Platelet Count Result 97 k/mm3 (150-375); Red Blood Count 3.23 M/mm3 (4.2-5.4); Red Cell Distribution Width 15.4 % (11.5-14.5); White Blood Count 3.6 K/mm3 (4.5-10.0)
[2020-07-04 17:01] LABS: Alanine Aminotransferase 8 U/L (4-35); Albumin Level 3.3 g/dL (3.5-5.1); Alkaline Phosphatase 66 U/L (38-126); Anion Gap 7 mmol/L (8-16); Aspartate Amino Transferase 18 U/L (14-36); Bilirubin,Total 1.6 mg/dL (0.2-1.3); Blood Urea Nitrogen 27 mg/dL (7-17); Calcium 9.2 mg/dL (8.4-10.2); Carbon Dioxide 24 mmol/L (22-30); Chloride 109 mmol/L (98-107); Estimated Glomerular Filt Rate 31; Glucose 114 mg/dL (65-105); Potassium 4.3 mmol/L (3.4-5.0); Sodium 140 mmol/L (137-145)
== END 2020-07-04 16:03 ==
PROVIDERS: PCP Family Medicine; Visit Provider Internal Medicine Cardiovascular Disease
DX: E86.0 Dehydration (principal); I48.91 Unspecified atrial fibrillation
CPT/HCPCS: 80053; 85025

== ENCOUNTER 2020-07-30 16:22 | Emergency (ER) | payer MEDICARE, MEDICAID, SELFPAY ==
--- NOTE | ~2020-07-30 | US_ITS ---
EXAMINATION: US venous doppler LE RT DATE: 07/30/2020 17:32 INDICATION: Right lower limb pain and swelling. TECHNIQUE: Grayscale ultrasound images without and with compression and Doppler ultrasound images of the right lower extremity veins were obtained. COMPARISON: None. FINDINGS: The visualized portions of right common femoral vein, profunda (deep) femoral vein, femoral vein, pop liteal vein, posterior tibial veins, and greater saphenous vein outflow are patent. IMPRESSION: 1. No deep venous thrombosis. Reviewed, dictated and finalized at location A. INE BRUSHER
--- NOTE | ~2020-07-30 | XR_ITS ---
EXAMINATION: XR knee RT 3V DATE: 07/30/2020 18:48 INDICATION: Right knee pain. TECHNIQUE: 3 views of right knee were obtained. COMPARISON: None. FINDINGS: There is a total right knee arthroplasty with patellar resurfacing in near-anatomic alignme nt. No periprosthetic lucencies to suggest loosening or infection. There is a comminuted periprosthet ic fracture of distal femur. The main distal fracture fragment demonstrates impaction, 8 degrees post erior displacement, 3 mm lateral displacement, and 11 degrees lateral angulation. There is a moderate -sized knee joint effusion. IMPRESSION: 1. Comminuted periprosthetic fracture of distal femur. Reviewed, dictated and finalized at location A. UTIVE ACCOUNT MANAGER
--- NOTE | ~2020-07-30 | XR_ITS ---
EXAMINATION: XR hip RT 2V w AP pelvis DATE: 07/30/2020 18:48 INDICATION: Right hip pain. TECHNIQUE: An anteroposterior view of the pelvis and 2 views of right hip on a total of 5 radiographs were obtained. COMPARISON: Pelvis radiograph 12/16/2017 FINDINGS: Bone alignment is normal. No fracture. There is severe osteoarthritis of the hips. Osteitis pubis is noted. Surgical clips overlie the abdomen and pelvis. Stool distends the rectum. IMPRESSION: 1. Severe osteoarthritis of the hips. 2. Stool distends the rectum. Reviewed, dictated and finalized at location A. [employer]
[2020-07-30 16:30] VITALS: BP 103/55; PULSE 60; RESP 12; TEMP 36.8; O2SAT 99
--- NOTE | 2020-07-30 16:33 | ED.GENADULT ---
HPI - General Adult General Chief complaint: Fall Stated complaint: FALL Time Seen by Provider: 07/30/20 16:22 Source: patient Mode of arrival: EMS Limitations: no limitations History of Present Illness HPI narrative: Patient was brought in by EMS after her daughter called 911 because her mother could not stand. Patient said she was being assisted up to the bathroom by her daughter but her legs would not support her and she had a lot of pain in her right leg. She did not fall she just sat back down on the bed. She normally ambulates about her home with a walker, she lives with her daughter. She has no history of blood clot or fall in the recent past. Onset (ago): hour(s) Location: lower extremity (right) Severity: severe Severity scale (1-10): 7 Quality: sharp Exacerbating factors: movement Associated symptoms: denies other symptoms Treatments prior to arrival: none Related Data Home Medications Medication Instructions Recorded Confirmed warfarin 2 mg PO DAILY 08/19/19 07/07/20 donepezil 10 mg PO HS 05/05/20 07/07/20 glimepiride 1 mg PO DAILY 05/05/20 07/07/20 tramadol 50 mg PO TID PRN 05/05/20 07/07/20 Allergies Allergy/AdvReac Type Severity Reaction Status Date / Time No Known Allergies Allergy Verified 07/07/20 11:14 Review of Systems Review of Systems: All systems reviewed & are unremarkable except as noted in HPI and below [facility] Past Medical History Medical History Anemia of chronic disease Arthritis Atrial fibrillation Cataracts, bilateral CHF (congestive heart failure) Diastolic Chronic right-sided heart failure echocardiogram July 2019 demonstrated EF of 55-60%, moderately increased left ventricular wall thickness, diastolic function is abnormal, right ventricular chamber severely enlarged, right ventricular systolic function severely reduced, severe biatrial enlargement, mild mitral valve regurgitation, moderate tricuspid valve regurgitation, severe pulmonary hypertension with RVSP of 91, mild pulmonic regurgitation, small atheroma anterior and posterior aortic root, dilated inferior vena cava was greater than 50% collapse consistent with significantly elevated right atrial pressures Cirrhosis of liver with ascites CKD (chronic kidney disease) stage 3, GFR 30-59 ml/min CVA (cerebral vascular accident) 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 On oral medication. Essential hypertension Multinodular goiter normal TSH 07/2019 Peripheral neuropathy Seizures Severe pulmonary arterial systolic hypertension Surgical History Surgical History History of gastric bypass History of total right knee replacement Status post cholecystectomy Family History Family History Mother Diabetes mellitus Father Acute myocardial infarction Sibling Kidney disease sister Son Murder 1 son Son Pancreatic cancer Daughter , at age 39 or 40 Acute myocardial infarction Son Alcoholic cirrhosis 1 son Social History Social History Social History: The patient did live in [place] at 1 time. Then she lived in [facility]. And now she lives with her daughter. Her still lives in a fdc in [place] since he had a stroke. Healthcare power of family law attorney: Nohelia Stanley Code status: Full code Smoking status: Never smoker Alcohol intake: never Substance use: never Gender identity (if verbalized by the patient): Female Spiritual care concerns: No Agree to blood products: No Exam Const: General: no acute distress and alert HENMT: Head: normal to inspection Eyes: Pupils: Equal, round and reactive pupils pres
--- NOTE | 2020-07-30 16:46 | ECG_ITS ---
Measurements Intervals [place] Rate: 59 P: HI: 0 QRS: -85 QRSD: 127 T: 0 QT: 227 QTc: 226 Interpretive Statements ELECTRONIC VENTRICULAR PACEMAKER NO FURTHER INTERPRETATION IS POSSIBLE ATYPICAL ECG Electronically Signed On 07-31-2020 7:03:06 WEB MARKETING COORDINATOR by Jude Mcintosh D.O.
[2020-07-30 18:26] LABS: Prothrombin Time 39.3 Seconds (11.1-14.7)
[2020-07-30 19:35] LABS: Basophils Percent Auto 0.2 % (0.2-1.2); Eosinophils Absolute Auto 0.2 K/mm3 (0-0.3); Eosinophils Percent Auto 1.9 % (0-4.4); Hematocrit 30.1 % (37.0-47.0); Hemoglobin 9.6 g/dL (12.0-15.0); Immature Granulocyte Absolute 0.06 K/mm3 (0.00-0.031); Immature Granulocyte Percent A 0.7 % (0-0.5); Lymphocytes Absolute Auto 0.57 K/mm3 (0.9-3.2); Lymphocytes Percent Auto 6.5 % (18.3-44.2); Mean Corpuscular HGB Conc 31.9 g/dl (32-36); Mean Corpuscular Hemoglobin 30.2 pg (26-34); Mean Corpuscular Volume 94.7 fl (80-100); Mean Platelet Volume 11.5 fl (7.4-10.4); Monocytes Percent Auto 11.8 % (2.6-8.5); Neutrophils Absolute Auto 6.9 K/mm3 (1.3-6.7); Neutrophils Percent Auto 78.9 % (45.5-73.1); Platelet Count Result 133 k/mm3 (150-375); Red Blood Count 3.18 M/mm3 (4.2-5.4); Red Cell Distribution Width 16.3 % (11.5-14.5); White Blood Count 8.7 K/mm3 (4.5-10.0)
[2020-07-30 19:40] LABS: Alanine Aminotransferase 13 U/L (4-35); Albumin Level 3.3 g/dL (3.5-5.1); Alkaline Phosphatase 74 U/L (38-126); Anion Gap 10 mmol/L (8-16); Aspartate Amino Transferase 26 U/L (14-36); Bilirubin,Total 1.6 mg/dL (0.2-1.3); Blood Urea Nitrogen 36 mg/dL (7-17); Carbon Dioxide 18 mmol/L (22-30); Chloride 111 mmol/L (98-107); Estimated Glomerular Filt Rate 32; Glucose 151 mg/dL (65-105); Sodium 139 mmol/L (137-145)
[2020-07-30] MEDS: SODIUM CHLORIDE 0.9% IV 500 ML 999 ML IV CONT (20:14)
[2020-07-30 20:43] VITALS: BP 134/73; PULSE 64; RESP 16; O2SAT 97
--- NOTE | 2020-07-30 21:12 | PC.NURSE ---
Report to Joshua silva [facility].
--- NOTE | 2020-07-30 21:30 | PC.NURSE ---
pt has urinated on self, GEMINI ribera wants pt to not be moved until ems transfers pt to their stretcher, RN checked again to confirm that order, PA confirmed not to move until ems transfers pt.
[2020-07-30] MEDS: HYDROmorphone HCL INJ (*CRX) 1 MG/ML SYR IV PUSH (22:48)
[2020-07-30 23:00] VITALS: BP 118/68; PULSE 68; RESP 18; TEMP 36.6; O2SAT 97
== END 2020-07-30 23:01 | disposition short-term general hospital (02) ==
PROVIDERS: Physician Assistant; Emergency Provider Emergency Medicine; PCP Family Medicine
DX: S72.401A Unspecified fracture of lower end of right femur, initial encounter for closed fracture (principal); E11.22 Type 2 diabetes mellitus with diabetic chronic kidney disease; I13.0 Hypertensive heart and chronic kidney disease with heart failure and stage 1 through stage 4 chronic kidney disease, or unspecified chronic kidney disease; N18.32 Chronic kidney disease, stage 3b; I50.9 Heart failure, unspecified; Z96.651 Presence of right artificial knee joint; R79.1 Abnormal coagulation profile; F03.90 Unspecified dementia, unspecified severity, without behavioral disturbance, psychotic disturbance, mood disturbance, and anxiety; D63.1 Anemia in chronic kidney disease; Z79.84 Long term (current) use of oral hypoglycemic drugs; Z98.84 Bariatric surgery status; H26.9 Unspecified cataract; K74.60 Unspecified cirrhosis of liver; R18.8 Other ascites; E11.42 Type 2 diabetes mellitus with diabetic polyneuropathy; Z95.0 Presence of cardiac pacemaker; W19.XXXA Unspecified fall, initial encounter; X50.1XXA Overexertion from prolonged static or awkward postures, initial encounter
CPT/HCPCS: 36415; 73502; 73562; 80053; 85025; 85055; 85610; 93005; 93971; 96365; 96375; 99285; J0131; J1170; J7040